=== PATIENT | female | born 1965 | race Caucasian/White ===

== ENCOUNTER 2016-11-18 16:32 | Emergency (ER) | payer BC ==
--- NOTE | 2016-11-18 16:52 | ER Document Report ---
ED Medical Screen (RME) - General Mode of Arrival: Ambulatory Information source: Patient TRAVEL OUTSIDE OF THE [place] IN LAST 30 DAYS: No <BOB HART - Last Filed: 11/18/16 16:46> <SEBAS GALLAGHER - Last Filed: 11/18/16 19:19> - General Stated Complaint: SYNCOPE Notes: Patient complains of epigastric abdominal pain that radiates around to right side through to her back. Patient states she's had this pain off and on for several months that worsened today. Patient reports nausea but states she has not been able to vomit. Patient states she has felt palpitations and chest pain. Patient reports chest pain as been off and on, but constant for the past week. hx: Hypothyroid, appendectomy, recent fundoplication, hypertension, dyslipidemia I have greeted and performed a rapid initial assessment of this patient. A comprehensive ED assessment and evaluation of the patient, analysis of test results and completion of the medical decision making process will be conducted by additional ED providers. (BOB HART) - Related Data Allergies/Adverse Reactions: Sulfa (Sulfonamide Antibiotics) Allergy (Severe, Verified 11/18/16 16:49) THROAT SWELLING erythromycin base [Erythromycin Base] Allergy (Intermediate, Verified 11/18/16 16:49) RASH, VOMITING Past Medical History - Past Medical History Cardiac Medical History: Reports: Hx Hypercholesterolemia, Hx Hypertension Denies: Hx Coronary Artery Disease, Hx Heart Attack Pulmonary Medical History: Reports: Hx Sleep Apnea Denies: Hx Asthma, Hx Bronchitis, Hx COPD, Hx Pneumonia Neurological Medical History: Denies: Hx Cerebrovascular Accident, Hx Seizures Endocrine Medical History: Reports: Hx Hypothyroidism Renal/ Medical History: Denies: Hx Kidney Stones GI Medical History: Reports: Hx Gastroesophageal Reflux Disease - Severe, Hx Hiatal Hernia - Sliding Musculoskeltal Medical History: Denies Hx Arthritis Past Surgical History: Reports: Hx Adenoidectomy, Hx Cholecystectomy, Hx Gynecologic Surgery - ectopic. Denies: Hx Hysterectomy - Immunizations Hx Diphtheria, Pertussis, Tetanus Vaccination: Yes - SEP 2012 <BOB HART - Last Filed: 11/18/16 16:46> Physical Exam - Abdominal Tenderness: Tender - Epigastric <BOB HART - Last Filed: 11/18/16 16:46> Course <BOB HART - Last Filed: 11/18/16 16:46> - Laboratory Result Diagrams: 11/18/16 17:00 11/18/16 17:00 - Diagnostic Test Radiology reviewed: Image reviewed, Reports reviewed - Peribronchial cuffing - EKG Interpretation by Me EKG shows normal: Sinus rhythm, [place], Intervals, QRS Complexes - Some inferior Q waves, ST-T Waves <SEBAS GALLAGHER - Last Filed: 11/18/16 19:19> - Re-evaluation Re-evalutation: 11/18/16 16:51 Offered patient aspirin, patient declines states that her blood was too thin and she cannot tolerate aspirin, patient advised of the reasoning behind the order. Patient declines (BOB HART) - Vital Signs Vital signs: Temp Pulse Resp BP Pulse Ox 98.1 F 99 14 151/102 H 97 11/18/16 16:39 11/18/16 16:39 11/18/16 16:39 11/18/16 16:39 11/18/16 16:39 - Laboratory Laboratory results interpreted by me: 11/18/16 11/18/16 11/18/16 17:00 17:00 17:00 Chloride 96 L Glucose 114 H Magnesium 1.5 L AST 82 H ALT 104 H TSH 76.00 H Free T4 0.70 L Free T3 pg/mL 2.01 L
[2016-11-18 17:26] LABS: ABSOLUTE EOSINOPHILS # (AUTO) 0.2 10^3/uL (0.0-0.6); ABSOLUTE LYMPHOCYTES (AUTO) 1.3 10^3/uL (0.5-4.7); ABSOLUTE MONOCYTES (AUTO) 0.4 10^3/uL (0.1-1.4); ABSOLUTE NEUT (AUTO) 4.5 10^3/uL (1.7-8.2); BASOPHILS % (AUTO) 0.6 % (0-2); EOSINOPHILS % (AUTO) 2.9 % (0-6); HEMATOCRIT 42.9 % (36.0-47.0); HEMOGLOBIN 14.3 g/dL (12.0-15.5); LYMPHOCYTES % (AUTO) 19.5 % (13-45); MEAN CORPUSCULAR HEMOGLOBIN 30.9 pg (27.0-33.4); MEAN CORPUSCULAR HGB CONC 33.3 g/dL (32.0-36.0); MEAN CORPUSCULAR VOLUME 93 fl (80-97); MONOCYTES % (AUTO) 6.3 % (3-13); RED BLOOD COUNT 4.62 10^6/uL (3.72-5.28); RED CELL DISTRIBUTION WIDTH 13.5 % (11.5-14.0); SEGMENTED NEUTROPHILS % (AUTO) 70.7 % (42-78); WHITE BLOOD COUNT 6.4 10^3/uL (4.0-10.5)
[2016-11-18 17:32] LABS: APPEARANCE,URINE SLIGHTLY-CLOUDY; BILIRUBIN,URINE NEGATIVE (NEGATIVE); GLUCOSE, URINE NEGATIVE (NEGATIVE); KETONES,URINE NEGATIVE (NEGATIVE); LEUKOCYTE ESTERASE,URINE NEGATIVE (NEGATIVE); NITRITE,URINE NEGATIVE (NEGATIVE); PROTEIN,URINE NEGATIVE (NEGATIVE); UROBILINOGEN,URINE NEGATIVE mg/dL (<2.0)
[2016-11-18 17:48] LABS: ALANINE AMINOTRANSFERASE 104 U/L (9-52); ALBUMIN 4.6 g/dL (3.5-5.0); ALKALINE PHOSPHATASE 110 U/L (38-126); ANION GAP 16 (5-19); ASPARTATE AMINO TRANSFERASE 82 U/L (14-36); BILIRUBIN,DIRECT 0.4 mg/dL (0.0-0.4); BILIRUBIN,TOTAL 0.6 mg/dL (0.2-1.3); BLOOD UREA NITROGEN 16 mg/dL (7-20); CALCIUM 9.3 mg/dL (8.4-10.2); CARBON DIOXIDE 28 mmol/L (22-30); CHLORIDE 96 mmol/L (98-107); CREATINE KINASE 81 U/L (30-135); CREATININE RESULT 0.95 mg/dL (0.52-1.25); GLUCOSE 114 mg/dL (75-110); LIPASE 61.8 U/L (23-300); MAGNESIUM 1.5 mg/dL (1.6-2.3); POTASSIUM 4.2 mmol/L (3.6-5.0); SODIUM 140.4 mmol/L (137-145); TOTAL PROTEIN 8.1 g/dL (6.3-8.2)
[2016-11-18 17:58] LABS: CREATINE KINASE MB 0.83 ng/mL (<4.55); TROPONIN I < 0.012 ng/mL
[2016-11-18 19:00] LABS: FREE T3 2.01 pg/mL (2.77-5.27)
--- NOTE | 2016-11-18 19:10 | EKG REPORT ---
SEVERITY:- ABNORMAL ECG - SINUS RHYTHM DIFFUSE NONSPECIFIC ST-T CHANGES : Confirmed by: Carlos Aquino MD 18-Nov-2016 19:09:26
--- NOTE | 2016-11-18 19:33 | ER Document Report ---
ED GI/ - General Time seen by provider: 19:20 Mode of Arrival: Ambulatory Information source: Patient, Relative - spouse TRAVEL OUTSIDE OF THE [place] IN LAST 30 DAYS: No - HPI Patient complains to provider of: Abdominal pain, Diarrhea. No: Vomiting Onset: Other - see HPI note Location: RUQ Associated symptoms: Diarrhea, Dizzy, Loss of appetite, Nausea, Radiates to back. denies: Vomiting <ROMEL HOWARD - Last Filed: 11/18/16 19:56> <SEBAS GALLAGHER - Last Filed: 11/18/16 23:14> - General Chief Complaint: Chest Pain > 30 Stated Complaint: SYNCOPE Notes: Patient is a 51 year old female presenting to the emergency department for abdominal pain, nausea, and diarrhea. Patient states she has had gradual abdominal pain that has worsened over the last month. Patient states her pain is in her right upper abdomen and radiates into her back. Patient states she also has had some syncopal episodes, heart racing, and muscle cramping as well. Patient states she is so nauseous that she cannot eat but she still has been gaining weight. Patient has hypothyroidism and is on synthroid. Patient's PCP is currently trying to get her thyroid medication at the right level. Patient states she has had diarrhea since she got her appendix removed. Patient states she had 4 abdominal surgeries last year; 3 for hernias and 1 was an appendectomy. Patient also has a history of a cholecystectomy. (ROMEL HOWARD) - Related Data Allergies/Adverse Reactions: Sulfa (Sulfonamide Antibiotics) Allergy (Severe, Verified 11/18/16 16:49) THROAT SWELLING erythromycin base [Erythromycin Base] Allergy (Intermediate, Verified 11/18/16 16:49) RASH, VOMITING Past Medical History - General Information source: Patient - Social History Smoking Status: Current Every Day Smoker Chew tobacco use (# tins/day): No Frequency of alcohol use: Occasional Drug Abuse: None Family History: Hypertension Patient has suicidal ideation: No Patient has homicidal ideation: No - Past Medical History Cardiac Medical History: Reports: Hx Hypercholesterolemia, Hx Hypertension Pulmonary Medical History: Reports: Hx Sleep Apnea Endocrine Medical History: Reports: Hx Hypothyroidism GI Medical History: Reports: Hx Gastroesophageal Reflux Disease - Severe, Hx Hiatal Hernia - Sliding Past Surgical History: Reports: Hx Abdominal Surgery - hernia repairs x3, Hx Adenoidectomy, Hx Appendectomy - 2016, Hx Cholecystectomy, Hx Gynecologic Surgery - ectopic - Immunizations Hx Diphtheria, Pertussis, Tetanus Vaccination: Yes - SEP 2012 <ROMEL HOWARD - Last Filed: 11/18/16 19:56> Review of Systems - Review of Systems Constitutional: No symptoms reported EENT: No symptoms reported Cardiovascular: See HPI, Heart racing, Dizziness Respiratory: No symptoms reported Gastrointestinal: See HPI, Abdominal pain, Diarrhea, Nausea, Poor appetite. denies: Vomiting Genitourinary: No symptoms reported Female Genitourinary: No symptoms reported Musculoskeletal: See HPI Skin: No symptoms reported Hematologic/Lymphatic: No symptoms reported Neurological/Psychological: See HPI, Headaches -: Yes All other systems reviewed and negative <ROMEL HOWARD - Last Filed: 11/18/16 19:56> Physical Exam - Vital signs Interpretation: Hypertensive <ROMEL HOWARD - Last Filed: 11/18/16 19:56> <SEBAS GALLAGHER - Last Filed: 11/18/16 23:14> - Vital signs Vitals: Temp Pulse Resp BP Pulse Ox 98.1 F 99 14 151/102 H 97 11/18/16 16:39 11/18/16 16:39 11/18/16 16:39 11/18/16 16:39 11/18/16 16:39 - Notes Notes: GENERAL: Well-appearing, well-nourished and in no acute distress HEAD: Atraumatic, normocephalic EYES: Pupils equal round and reactive to light, extraocular movements intact, sclera anicteric, no conjunctival injection or discharge ENT: Nares patent, oropharynx clear without exudates, moist mucous membranes, poor dentition. NECK: Normal range of motion, supple without lymphadenopathy LUNGS: Breath sounds clear to auscultation bilaterally and equal. No wheezes rales or rhonchi HEART: Regular rate and rhythm without murmurs ABDOMEN: Soft, mild generalized abdominal tenderness particularly in the RUQ, hyperactive bowel sounds. No guarding, no rebound. No masses appreciated. No [place] sign BACK: Mild right sided CVA tenderness. EXTREMITIES: Normal range of motion, no calf tenderness, no edema NEUROLOGICAL: Cranial nerves grossly intact. Normal speech, Normal sensory and motor exams. No gross cerebellar abnormalities PSYCH: Normal mood, normal affect SKIN: Warm, Dry, normal turgor, no lesions noted (ROMEL HOWARD) Course - Laboratory Result Diagrams: 11/18/16 17:00 11/18/16 17:00 <ROMEL HOWARD - Last Filed: 11/18/16 19:56> - Laboratory Result Diagrams: 11/18/16 17:00 11/18/16 17:00 - Diagnostic Test Radiology reviewed: Reports reviewed - Chest ?Peribronchial cuffing, CT with small ventral hernia <SEBAS GALLAGHER - Last Filed: 11/18/16 23:14> - Re-evaluation Re-evalutation: 11/18/16 21:51 Patient is feeling much better overall after the pain medication. I reviewed the laboratory findings with the patient. She has finished the contrast and waiting on her CT scan to be performed. 11/18/16 23:08 Patient is feeling much better overall. She will need gastroenterology follow- up for further definitive care. I've asked her to discuss with her primary care physician as well as her treatment of her hypothyroidism. Her abdomen isn' t benign on recheck and she is tolerating by mouth. She is comfortable with discharge plans. We will prescribe her Phenergan and Levsin for symptomatic treatment. (SEBAS GALLAGHER) - Vital Signs Vital signs: Temp Pulse Resp BP Pulse Ox 98.1 F 99 17 146/86 H 91 L 11/18/16 16:39 11/18/16 16:39 11/18/16 21:02 11/18/16 21:02 11/18/16 21:02 - Laboratory Laboratory results interpreted by me: 11/18/16 11/18/16 11/18/16 17:00 17:00 17:00 Chloride 96 L Glucose 114 H Magnesium 1.5 L AST 82 H ALT 104 H TSH 76.00 H Free T4 0.70 L Free T3 pg/mL 2.01 L Discharge <ROMEL HOWARD - Last Filed: 11/18/16 19:56> <SEBAS GALLAGHER - Last Filed: 11/18/16 23:14> - Discharge Clinical Impression: Hypothyroidism Abdominal pain Qualifiers: Abdominal location: upper abdomen, unspecified Qualified Code(s): R10.10 - Upper abdominal pain, unspecified Chest pain Qualifiers: Chest pain type: unspecified Qualified Code(s): R07.9 - Chest pain, unspecified Condition: Good Disposition: HOME, SELF-CARE Additional Instructions: Please follow-up with your primary care physician regarding your hypothyroidism. As well you will need gastroenterology follow-up at some point. Please discuss with your physician for referral. Please return if you' re worsening or for other concern. Prescriptions: Hyoscyamine Sulfate [Levsin 0.125 Tablet] 0.125 - 0.25 mg PO Q6HP PRN #12 tablet PRN Reason: For Abdominal Pain Promethazine HCl [Phenergan 25 mg Tablet] 1 - 2 tab PO Q6H PRN #15 tablet PRN Reason: Referrals: HARLEEN CERVANTES MD [Primary Care Provider] - Follow up in 3-5 days (Please discuss further with her primary care physician gastroenterology referral) Dianaibe Attestation: 11/18/16 23:11 I personally performed the services described in the documentation, reviewed and edited the documentation which was dictated to the scribe in my presence, and it accurately records my words and actions. (SEBAS GALLAGHER) Scribe Documentation - Scribe Written by Lali:: Romel Howard 11/18/16 20:00 acting as scribe for :: Reji <ROMEL HOWARD - Last Filed: 11/18/16 19:56>
[2016-11-18] MEDS ORDERED: NORMAL SALINE 1000 ML 500 ML IV ONE (19:54)
[2016-11-18] MEDS ORDERED: ONDANSETRON HCL INJ/PF 4 MG/2 ML SDV IV ONE (19:54)
[2016-11-18] MEDS ORDERED: HYDROMORPHONE HCL INJ/PF 2 MG/ML AMPULE IV ONE (19:55)
[2016-11-18 23:22] VITALS: BP 121/89
== END 2016-11-18 23:27 | disposition home or self-care (01) ==
LOC: ER 16:32
DX: R07.9 Chest pain, unspecified (principal); E03.9 Hypothyroidism, unspecified; K43.9 Ventral hernia without obstruction or gangrene; R10.11 Right upper quadrant pain; R19.7 Diarrhea, unspecified; R63.0 Anorexia; R11.0 Nausea; R10.817 Generalized abdominal tenderness; R55 Syncope and collapse; R25.2 Cramp and spasm; R51 Headache; I10 Essential (primary) hypertension; F17.200 Nicotine dependence, unspecified, uncomplicated; Z90.49 Acquired absence of other specified parts of digestive tract; Z88.2 Allergy status to sulfonamides; Z88.1 Allergy status to other antibiotic agents; Z87.19 Personal history of other diseases of the digestive system; Z87.59 Personal history of other complications of pregnancy, childbirth and the puerperium; Z79.899 Other long term (current) drug therapy
CPT/HCPCS: 93005; 99285; 96374; 96375; 36415; 84439; 82553; 82550; 83690; 83735; 84443; 84703; 85025; 80053; 81001; 84484; 84481; 71020; 74177; 93010; J1170; J2405; J7030

== ENCOUNTER 2016-11-29 10:09 | Day surgery (SDC) | payer BC ==
[~2016-11-29 10:09] MED LIST: PROPOFOL INJ 200 MG/20 ML VIAL IV ONE
[2016-11-29 11:20] VITALS: BP 136/99
--- NOTE | 2016-11-29 13:04 | Operative Report ---
Operative Report DATE OF SURGERY: 11/29/16 Operative Report: The risks, benefits and alternatives of the procedure including risks of bleeding, perforation requiring surgery are explained to the patient detail and informed consent is obtained. Patient is taken back to the endoscopy suite and placed in a left, lateral decubital position. Timeout is called. Propofol medications administered. A rectal examination was done which did not reveal any masses, tears or fissures. An Olympus video scope was inserted into the patient's rectum. The scope was then gradually advanced all the way to the cecum. The cecum was identified by the usual anatomical landmarks including the ileocecal valve as well as the appendiceal office. Photodocumentation is obtained. Prep is good. Scope was then sequentially pulled back via the rest segments of the colon including the ascending colon, hepatic flexure, transverse colon, splenic flexure, descending colon and finally into the rectosigmoid portions of the colon. Retroflexion maneuvers performed. The risks benefits and alternatives of the procedure explained to the patient in detail and informed consent is obtained that GIF Olympus video scope was inserted into the patient's mouth and hypopharynx the esophagus is identified intubated and insufflated the scope was then advanced through the esophagus stomach and duodenum retroflexion maneuver is done the esophagus stomach and first and second portions of the duodenum examined PREOPERATIVE DIAGNOSIS: Change of bowel habits. Gastroesophageal reflux disease , dysphagia POSTOPERATIVE DIAGNOSIS: Diverticulosis mild, no evidence of diverticulitis. Internal hemorrhoids. Right-sided mucosal inflammation status post biopsy rule out lymphocytic, collagenous, microscopic colitis. Gastritis mucosal specimens obtained rule out Helicobacter pylori. Duodenitis. Esophagitis OPERATION: Colonoscopy with biopsy. EGD with biopsy SURGEON: PUSHPA STOKES ANESTHESIA: LMAC TISSUE REMOVED OR ALTERED: As described above. COMPLICATIONS: None. ESTIMATED BLOOD LOSS: none. INTRAOPERATIVE FINDINGS: As described above. PROCEDURE: Patient tolerated the procedure well. Patient is discharged in good condition. No immediate postprocedure complications are noted. Discharge date 11/29/16 Discharge diet: Regular. Discharge activity: Regular. 2-3 week follow-up to discuss findings. We'll await on biopsies. Patient is instructed to call the office or proceed to the emergency room should there be any further problems or questions.
== END 2016-11-29 11:26 | disposition home or self-care (01) ==
LOC: END 10:09
PROVIDERS: ATTEND Internal Medicine Gastroenterology
PROC: 0DBF8ZX Excision of Right Large Intestine, Via Natural or Artificial Opening Endoscopic, Diagnostic (ICD-10-PCS; 2016-11-29)
PROC: 0DB68ZX Excision of Stomach, Via Natural or Artificial Opening Endoscopic, Diagnostic (ICD-10-PCS; principal; 2016-11-29 12:30)
PROC: 0DB58ZX Excision of Esophagus, Via Natural or Artificial Opening Endoscopic, Diagnostic (ICD-10-PCS; 2016-11-29 12:30)
DX: K57.30 Diverticulosis of large intestine without perforation or abscess without bleeding (principal); K64.8 Other hemorrhoids; K52.9 Noninfective gastroenteritis and colitis, unspecified; K21.0 Gastro-esophageal reflux disease with esophagitis; K29.70 Gastritis, unspecified, without bleeding; K29.80 Duodenitis without bleeding; D50.9 Iron deficiency anemia, unspecified; E78.5 Hyperlipidemia, unspecified; I10 Essential (primary) hypertension; Z79.899 Other long term (current) drug therapy
CPT/HCPCS: 43239; 45380; 88305 ×2; J2704; 740

== ENCOUNTER 2016-12-20 09:03 | Day surgery (SDC) | payer BC ==
[2016-12-20 10:53] VITALS: BP 140/88
--- NOTE | 2016-12-20 11:41 | Operative Report ---
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 Gastritis status post biopsy rule out Helicobacter pylori OPERATION: EGD with ablation. EGD with biopsy SURGEON: PUSH[place] STOKES ANESTHESIA: LMAC TISSUE REMOVED OR ALTERED: Gastric specimen obtained rule out Helicobacter pylori COMPLICATIONS: None. ESTIMATED BLOOD LOSS: none. INTRAOPERATIVE FINDINGS: As described above. PROCEDURE: Patient tolerated the procedure well. No immediate postprocedure complications are noted. Patient is discharged in good condition. Discharge date: 12/20/2016. Discharge diet: Regular. Discharge activity: Regular. 2-3 week follow-up to discuss findings. Patient is instructed to call the office or proceed to the emergency room should there be any further problems or questions. We'll await on biopsies. Surveillance upper endoscopy in 1 year for reevaluation
== END 2016-12-20 10:45 | disposition home or self-care (01) ==
LOC: END 09:03
PROVIDERS: ATTEND Internal Medicine Gastroenterology
PROC: 0DB68ZX Excision of Stomach, Via Natural or Artificial Opening Endoscopic, Diagnostic (ICD-10-PCS; principal; 2016-12-20 12:30)
PROC: 0D558ZZ Destruction of Esophagus, Via Natural or Artificial Opening Endoscopic (ICD-10-PCS; 2016-12-20 12:30)
DX: K22.719 Barrett's esophagus with dysplasia, unspecified (principal); K29.50 Unspecified chronic gastritis without bleeding; K21.9 Gastro-esophageal reflux disease without esophagitis; D50.9 Iron deficiency anemia, unspecified; I10 Essential (primary) hypertension; E03.9 Hypothyroidism, unspecified; E78.5 Hyperlipidemia, unspecified; Z88.2 Allergy status to sulfonamides; Z88.1 Allergy status to other antibiotic agents; Z79.899 Other long term (current) drug therapy
CPT/HCPCS: 43270; 43239; 88305 ×2; J2704; 740

== ENCOUNTER 2017-05-23 11:32 | Emergency (ER) | payer BC ==
--- NOTE | 2017-05-23 11:56 | ER Document Report ---
ED General - General Chief Complaint: Vomiting Stated Complaint: FEVER Time Seen by Provider: 05/23/17 11:46 Mode of Arrival: Ambulatory Information source: Patient Notes: 51-year-old female presents with complaint of bumps to the back of her head as of last night. Patient admits to feeling nauseous pain going down her spine. Patient admits to fever but was not taken a temperature. Patient denies any previous similar episodes notes family history TRAVEL OUTSIDE OF THE [place] IN LAST 30 DAYS: No - HPI Onset: This morning Onset/Duration: Sudden Quality of pain: Achy Severity: Mild Pain Level: 1 Associated symptoms: Fever, Other Exacerbated by: Denies Relieved by: Denies Similar symptoms previously: No Recently seen / treated by doctor: No - Related Data Allergies/Adverse Reactions: Sulfa (Sulfonamide Antibiotics) Allergy (Severe, Verified 05/23/17 11:34) THROAT SWELLING erythromycin base [Erythromycin Base] Allergy (Intermediate, Verified 05/23/17 11:34) RASH, VOMITING Past Medical History - Social History Smoking Status: Never Smoker Cigarette use (# per day): No Chew tobacco use (# tins/day): No Smoking Education Provided: No Family History: Hypertension - Past Medical History Cardiac Medical History: Reports: Hx Coronary Artery Disease - HIGH CHOLESTEROL , Hx Hypercholesterolemia, Hx Hypertension Denies: Hx Heart Attack Pulmonary Medical History: Reports: Hx Sleep Apnea Denies: Hx Asthma, Hx Bronchitis, Hx COPD, Hx Pneumonia Neurological Medical History: Denies: Hx Cerebrovascular Accident, Hx Seizures Endocrine Medical History: Reports: Hx Hypothyroidism Renal/ Medical History: Denies: Hx Kidney Stones, Hx Peritoneal Dialysis GI Medical History: Reports: Hx Gastroesophageal Reflux Disease - Severe, Hx Hiatal Hernia - Sliding Musculoskeltal Medical History: Denies Hx Arthritis Past Surgical History: Reports: Hx Abdominal Surgery - hernia repairs x3, Hx Adenoidectomy, Hx Appendectomy - 2016, Hx Cholecystectomy, Hx Gynecologic Surgery - ectopic. Denies: Hx Hysterectomy - Immunizations Hx Diphtheria, Pertussis, Tetanus Vaccination: Yes - SEP 2012 Review of Systems - Review of Systems Notes: REVIEW OF SYSTEMS: CONSTITUTIONAL : Admits fevers EENT: Denies eye, ear, throat, or mouth pain or symptoms. Denies nasal or sinus congestion or discharge. Denies throat, tongue, or mouth swelling or difficulty swallowing. CARDIOVASCULAR: Denies chest pain. Denies palpitations or racing or irregular heart beat. Denies ankle edema. RESPIRATORY: Denies cough, cold, or chest congestion. Denies shortness of breath, difficulty breathing, or wheezing. GASTROINTESTINAL: Admits nausea GENITOURINARY: Denies difficulty urinating, painful urination, burning, frequency, blood in urine, or discharge. FEMALE GENITOURINARY: Denies vaginal bleeding, heavy or abnormal periods, irregular periods. Denies vaginal discharge or odor. MUSCULOSKELETAL: Admits neck pain rating from her head HEMATOLOGIC : Denies easy bruising or bleeding. LYMPHATIC: Denies swollen, enlarged glands. NEUROLOGICAL: Admits to scalp pain PSYCHIATRIC: Denies anxiety or stress. Denies depression, suicidal ideation, or homicidal ideation. ALL OTHER SYSTEMS REVIEWED AND NEGATIVE. PHYSICAL EXAMINATION: GENERAL: Well-appearing, well-nourished and in no acute distress. HEAD: Scalp abscesses EYES: Pupils equal round and reactive to light, extraocular movements intact, conjunctiva are normal. ENT: Nares patent, oropharynx clear without exudates. Moist mucous membranes. NECK: Normal range of motion, supple without lymphadenopathy LUNGS: Breath sounds clear to auscultation bilaterally and equal. No wheezes rales or rhonchi. HEART: Regular rate and rhythm without murmurs ABDOMEN: Soft, nontender, nondistended abdomen. No guarding, no rebound. No masses appreciated. Female : deferred Musculoskeletal: Normal range of motion, no pitting or edema. No cyanosis. NEUROLOGICAL: Cranial nerves grossly intact. Normal speech, normal gait. Normal sensory, motor exams PSYCH: Normal mood, normal affect. SKIN: Multiple abscesses noted 3 in the occipital region one appears to be draining 1 is nonfluctuant the other appears to just be starting. There is to small pimples behind the right ear as well Dictation was performed using [employer] voice recognition software Physical Exam - Vital signs Vitals: Temp Pulse Resp BP Pulse Ox 97.6 F 105 H 16 160/111 H 96 05/23/17 11:34 05/23/17 11:34 05/23/17 11:34 05/23/17 11:34 05/23/17 11:34 Course - Re-evaluation Re-evalutation: 05/23/17 12:04 Patient appears to have exposure to MRSA, she overall looks well appears to be tender nauseous and having pain from these abscesses. Unfortunately not appear to be drainable at this time patient will be started on clindamycin and be given very strict return precautions After performing a Medical Screening Examination, I estimate there is LOW risk for OPEN FRACTURE, COMPARTMENT SYNDROME, TENDON RUPTURE, ACUTE NEUROVASCULAR INJURY, or RETAINED FOREIGN BODY, thus I consider the discharge disposition reasonable. Also, there is no evidence or peritonitis, sepsis, or toxicity. I have reevaluated this patient multiple times and no significant life threatening changes are noted. The patient and I have discussed the diagnosis and risks, and we agree with discharging home with close follow-up with the understanding that symptoms and presentations can change. We also discussed returning to the Emergency Department immediately if new or worsening symptoms occur. We have discussed the symptoms which are most concerning (e.g., changing or worsening pain, fever, numbness, weakness, cool or painful digits) that necessitate immediate return. - Vital Signs Vital signs: Temp Pulse Resp BP Pulse Ox 98.2 F 99 18 158/110 H 99 05/23/17 11:57 05/23/17 11:57 05/23/17 11:57 05/23/17 11:57 05/23/17 11:57 Discharge - Discharge Clinical Impression: Abscess, Nausea Fever Qualifiers: Fever type: unspecified Qualified Code(s): R50.9 - Fever, unspecified HTN (hypertension) Qualifiers: Hypertension type: essential hypertension Qualified Code(s): I10 - Essential ( primary) hypertension Condition: Stable Disposition: HOME, SELF-CARE Instructions: Abscess ([facility]) Additional Instructions: Follow up with your physician tomorrow for further care or return to the ED IMMEDIATELY if symptoms worsen or new concerns occur. If you cannot afford to follow up with your primary care physician a list of low cost clinics have been provided at the end of your discharge papers as well. Prescriptions: Clindamycin HCl 300 mg PO Q6 #40 capsule Metoclopramide HCl [Reglan 10 mg Tablet] 1 - 2 tab PO ASDIR PRN #25 tablet PRN Reason:
[2017-05-23 11:58] VITALS: BP 158/110
== END 2017-05-23 11:56 | disposition home or self-care (01) ==
LOC: ER 11:32
DX: L02.811 Cutaneous abscess of head [any part, except face] (principal); R11.2 Nausea with vomiting, unspecified; R50.9 Fever, unspecified; E78.00 Pure hypercholesterolemia, unspecified; I10 Essential (primary) hypertension; E03.9 Hypothyroidism, unspecified; Z88.3 Allergy status to other anti-infective agents; Z88.2 Allergy status to sulfonamides; Z90.49 Acquired absence of other specified parts of digestive tract
CPT/HCPCS: 99283

== ENCOUNTER → 2017-09-14 | Outpatient (CLI) | payer OTHER ==
[2017-09-14 16:15] LABS: ABSOLUTE EOSINOPHILS # (AUTO) 0.1 10^3/uL (0.0-0.6); ABSOLUTE LYMPHOCYTES (AUTO) 1.4 10^3/uL (0.5-4.7); ABSOLUTE MONOCYTES (AUTO) 0.5 10^3/uL (0.1-1.4); ABSOLUTE NEUT (AUTO) 4.8 10^3/uL (1.7-8.2); BASOPHILS % (AUTO) 0.4 % (0-2); HEMATOCRIT 45.5 % (36.0-47.0); HEMOGLOBIN 15.6 g/dL (12.0-15.5); LYMPHOCYTES % (AUTO) 20.2 % (13-45); MEAN CORPUSCULAR HEMOGLOBIN 31.4 pg (27.0-33.4); MEAN CORPUSCULAR HGB CONC 34.3 g/dL (32.0-36.0); MEAN CORPUSCULAR VOLUME 91 fl (80-97); MONOCYTES % (AUTO) 6.6 % (3-13); PLATELET COUNT 251 10^3/uL (150-450); RED BLOOD COUNT 4.98 10^6/uL (3.72-5.28); RED CELL DISTRIBUTION WIDTH 13.2 % (11.5-14.0); SEGMENTED NEUTROPHILS % (AUTO) 70.8 % (42-78); TOTAL CELLS COUNTED % (AUTO) 100 %; WHITE BLOOD COUNT 6.9 10^3/uL (4.0-10.5)
[2017-09-14 16:31] LABS: ALANINE AMINOTRANSFERASE 106 U/L (9-52); ALBUMIN 4.9 g/dL (3.5-5.0); ALKALINE PHOSPHATASE 104 U/L (38-126); ANION GAP 12 (5-19); ASPARTATE AMINO TRANSFERASE 101 U/L (14-36); BILIRUBIN,DIRECT 0.2 mg/dL (0.0-0.4); BILIRUBIN,TOTAL 0.2 mg/dL (0.2-1.3); BLOOD UREA NITROGEN 12 mg/dL (7-20); CARBON DIOXIDE 28 mmol/L (22-30); CHLORIDE 104 mmol/L (98-107); CHOLESTEROL 256.22 mg/dL (0-200); GLUCOSE 95 mg/dL (75-110); POTASSIUM 5.1 mmol/L (3.6-5.0); SODIUM 144.3 mmol/L (137-145); TOTAL PROTEIN 8.3 g/dL (6.3-8.2); TRIGLYCERIDES 270 mg/dL (<150)
[2017-09-14 16:42] LABS: DIRECT LDL 165 mg/dL (<100)
== END ==
LOC: CCC 15:38
DX: I10 Essential (primary) hypertension (principal)
CPT/HCPCS: 36415; 80053; 80061; 83036; 84443; 85025

== ENCOUNTER 2017-11-01 10:41 | Inpatient (IN) | payer SELFPAY ==
[2017-11-01] MEDS ORDERED: ASPIRIN 81 MG TABLET, CHEWABLE PO ONE (11:25)
--- NOTE | 2017-11-01 11:26 | ER Document Report ---
ED Medical Screen (RME) - General Chief Complaint: Chest Pain > 30 Stated Complaint: ABDOMINAL PAIN Time Seen by Provider: 11/01/17 11:20 Notes: RME DISCLOSURE I have seen this patient as part of a Rapid Medical Evaluation and, if applicable, placed any initially appropriate orders. The patient will be seen and fully evaluated, including a full history and physical exam, by a provider ( in Main ED or Fast Track) when a room becomes available. 52-year-old female here with complaints of left-sided chest pain radiating up to the left shoulder with shortness of breath. Pain started last night. Pain is worse with exertion. She has also had some right upper quadrant abdominal pain ongoing for the past few months. She also complains of some "worms in my poop". EXAM To auscultation bilaterally Regular rate and rhythm TRAVEL OUTSIDE OF THE [place] IN LAST 30 DAYS: No - Related Data Allergies/Adverse Reactions: Sulfa (Sulfonamide Antibiotics) Allergy (Severe, Verified 11/01/17 10:43) THROAT SWELLING erythromycin base [Erythromycin Base] Allergy (Intermediate, Verified 11/01/17 10:43) RASH, VOMITING Past Medical History - Past Medical History Cardiac Medical History: Reports: Hx Coronary Artery Disease - HIGH CHOLESTEROL , Hx Hypercholesterolemia, Hx Hypertension Denies: Hx Heart Attack Pulmonary Medical History: Reports: Hx Sleep Apnea Denies: Hx Asthma, Hx Bronchitis, Hx COPD, Hx Pneumonia Neurological Medical History: Denies: Hx Cerebrovascular Accident, Hx Seizures Endocrine Medical History: Reports: Hx Hypothyroidism Renal/ Medical History: Denies: Hx Kidney Stones, Hx Peritoneal Dialysis GI Medical History: Reports: Hx Gastroesophageal Reflux Disease - Severe, Hx Hiatal Hernia - Sliding Musculoskeltal Medical History: Denies Hx Arthritis Past Surgical History: Reports: Hx Abdominal Surgery - hernia repairs x3, Hx Adenoidectomy, Hx Appendectomy - 2016, Hx Cholecystectomy, Hx Gynecologic Surgery - ectopic. Denies: Hx Hysterectomy - Immunizations Hx Diphtheria, Pertussis, Tetanus Vaccination: Yes - SEP 2012 Physical Exam - Vital signs Vitals: Temp Pulse Resp BP Pulse Ox 97.4 F 86 18 175/99 H 97 11/01/17 10:54 11/01/17 10:54 11/01/17 10:54 11/01/17 10:54 11/01/17 10:54 Course - Vital Signs Vital signs: Temp Pulse Resp BP Pulse Ox 97.4 F 86 18 175/99 H 97 11/01/17 10:54 11/01/17 10:54 11/01/17 10:54 11/01/17 10:54 11/01/17 10:54
[2017-11-01 11:46] LABS: ABSOLUTE EOSINOPHILS # (AUTO) 0.1 10^3/uL (0.0-0.6); ABSOLUTE LYMPHOCYTES (AUTO) 1.1 10^3/uL (0.5-4.7); ABSOLUTE MONOCYTES (AUTO) 0.3 10^3/uL (0.1-1.4); ABSOLUTE NEUT (AUTO) 4.4 10^3/uL (1.7-8.2); BASOPHILS % (AUTO) 0.5 % (0-2); EOSINOPHILS % (AUTO) 2.2 % (0-6); HEMATOCRIT 42.8 % (36.0-47.0); HEMOGLOBIN 14.4 g/dL (12.0-15.5); MEAN CORPUSCULAR HEMOGLOBIN 31.2 pg (27.0-33.4); MEAN CORPUSCULAR HGB CONC 33.7 g/dL (32.0-36.0); MEAN CORPUSCULAR VOLUME 93 fl (80-97); MONOCYTES % (AUTO) 4.7 % (3-13); PLATELET COUNT 203 10^3/uL (150-450); RED BLOOD COUNT 4.62 10^6/uL (3.72-5.28); SEGMENTED NEUTROPHILS % (AUTO) 73.6 % (42-78); TOTAL CELLS COUNTED % (AUTO) 100 %; WHITE BLOOD COUNT 5.9 10^3/uL (4.0-10.5)
[2017-11-01 12:08] LABS: ALANINE AMINOTRANSFERASE 96 U/L (9-52); ALBUMIN 4.4 g/dL (3.5-5.0); ALKALINE PHOSPHATASE 90 U/L (38-126); ANION GAP 14 (5-19); ASPARTATE AMINO TRANSFERASE 61 U/L (14-36); BILIRUBIN,DIRECT 0.2 mg/dL (0.0-0.4); BILIRUBIN,TOTAL 0.3 mg/dL (0.2-1.3); BLOOD UREA NITROGEN 13 mg/dL (7-20); CALCIUM 9.5 mg/dL (8.4-10.2); CARBON DIOXIDE 25 mmol/L (22-30); CHLORIDE 103 mmol/L (98-107); GLUCOSE 168 mg/dL (75-110); LIPASE 45.1 U/L (23-300); POTASSIUM 4.7 mmol/L (3.6-5.0); SODIUM 141.6 mmol/L (137-145); TOTAL PROTEIN 7.3 g/dL (6.3-8.2)
--- NOTE | 2017-11-01 12:10 | RADIOLOGY REPORT (SQ) ---
EXAM DESCRIPTION: CHEST PA/LAT COMPLETED DATE/TIME: 11/01/2017 11:50 am REASON FOR STUDY: CP SOB COMPARISON: None. EXAM PARAMETERS: NUMBER OF VIEWS: two views TECHNIQUE: Digital Frontal and Lateral radiographic views of the chest acquired. RADIATION DOSE: NA LIMITATIONS: none FINDINGS: LUNGS AND PLEURA: Minimal left basilar scarring. No acute opacities, masses or pneumothor ax. No pleural effusion. MEDIASTINUM AND HILAR STRUCTURES: No masses or contour abnormalities. HEART AND VASCULAR STRUCTURES: Heart normal size. No evidence for failure. BONES: No acute findings. HARDWARE: None in the chest. OTHER: No other significant finding. IMPRESSION: NO SIGNIFICANT RADIOGRAPHIC FINDING IN THE CHEST. TECHNICAL DOCUMENTATION: JOB ID: [id number] [employer]- All Rights Reserved Reading location - IP/workstation name: [email or web address]
--- NOTE | 2017-11-01 12:25 | ER Document Report ---
ED Cardiac - General Chief Complaint: Chest Pain > 30 Stated Complaint: ABDOMINAL PAIN Time Seen by Provider: 11/01/17 11:20 Mode of Arrival: Ambulatory Information source: Patient Notes: Patient is a 52-year-old female with hypertension, diabetes who presents to the ER today for left-sided chest pain radiating to the left shoulder giving her shortness of breath and nausea. Patient states that this started last night and has been constant since that time. Patient's father had a heart attack at 50 years old and has heart disease. Patient has never had a heart attack or stroke, never had a stress test. Patient also complains of bloating to the abdomen for about a month with nausea , diarrhea, sensation of being full all the time.Patient denies any travel, states "I do go to the zoo a lot and feed the animals." She's been having white worms come from her stool. TRAVEL OUTSIDE OF THE [place] IN LAST 30 DAYS: No - Related Data Allergies/Adverse Reactions: Sulfa (Sulfonamide Antibiotics) Allergy (Severe, Verified 11/01/17 10:43) THROAT SWELLING erythromycin base [Erythromycin Base] Allergy (Intermediate, Verified 11/01/17 10:43) RASH, VOMITING Past Medical History - General Information source: Patient - Social History Smoking Status: Never Smoker Chew tobacco use (# tins/day): No Frequency of alcohol use: Rare Drug Abuse: None Family History: Hypertension Patient has suicidal ideation: No Patient has homicidal ideation: No - Past Medical History Cardiac Medical History: Reports: Hx Coronary Artery Disease - HIGH CHOLESTEROL , Hx Hypercholesterolemia, Hx Hypertension Denies: Hx Heart Attack Pulmonary Medical History: Reports: Hx Sleep Apnea Denies: Hx Asthma, Hx Bronchitis, Hx COPD, Hx Pneumonia Neurological Medical History: Denies: Hx Cerebrovascular Accident, Hx Seizures Endocrine Medical History: Reports: Hx Hypothyroidism Renal/ Medical History: Denies: Hx Kidney Stones, Hx Peritoneal Dialysis GI Medical History: Reports: Hx Gastroesophageal Reflux Disease - Severe, Hx Hiatal Hernia - Sliding Musculoskeltal Medical History: Denies Hx Arthritis Past Surgical History: Reports: Hx Abdominal Surgery - hernia repairs x3, Hx Adenoidectomy, Hx Appendectomy - 2016, Hx Cholecystectomy, Hx Gynecologic Surgery - ectopic. Denies: Hx Hysterectomy - Immunizations Hx Diphtheria, Pertussis, Tetanus Vaccination: Yes - SEP 2012 Review of Systems - Review of Systems Constitutional: No symptoms reported EENT: No symptoms reported Cardiovascular: See HPI Respiratory: No symptoms reported Gastrointestinal: See HPI Genitourinary: No symptoms reported Female Genitourinary: No symptoms reported Musculoskeletal: No symptoms reported Skin: No symptoms reported Hematologic/Lymphatic: No symptoms reported Neurological/Psychological: No symptoms reported Physical Exam - Vital signs Vitals: Temp Pulse Resp BP Pulse Ox 97.4 F 86 18 175/99 H 97 11/01/17 10:54 11/01/17 10:54 11/01/17 10:54 11/01/17 10:54 11/01/17 10:54 - Notes Notes: PHYSICAL EXAMINATION: GENERAL: Uncomfortable appearing, but in no acute distress. HEAD: Atraumatic, normocephalic. EYES: Pupils equal round and reactive to light, extraocular movements intact, sclera anicteric, conjunctiva are normal. NECK: Normal range of motion, supple without lymphadenopathy LUNGS: chest nontender to palpation,CTAB and equal. No wheezes rales or rhonchi. HEART: Regular rate and rhythm without murmurs ABDOMEN: Soft, distended, no tenderness. No guarding, no rebound BACK: no vertebral tenderness, normal ROM GI/: no CVA tenderness EXTREMITIES: Normal range of motion, no pitting edema. No cyanosis. NEUROLOGICAL: Cranial nerves grossly intact. Normal sensory/motor exams. PSYCH: Normal mood, normal affect. SKIN: Warm, Dry, normal turgor, no rashes or lesions noted Course - Re-evaluation Re-evalutation: 11/01/17 15:54 Patient showed me to Ziploc bags full of different sized worms that she is collected from her stool. Stool ova and parasite culture pending at this time. Cardiac enzymes negative, EKG without acute abnormality or evidence of ischemia, however patient has significant risk factors for cardiac disease and is admitted at this time for chest pain. Nitroglycerin paste did relieve her chest pain. - Vital Signs Vital signs: Temp Pulse Resp BP Pulse Ox 97.4 F 86 22 H 162/98 H 97 11/01/17 10:54 11/01/17 10:54 11/01/17 14:30 11/01/17 14:30 11/01/17 14:30 - Laboratory Result Diagrams: 11/01/17 11:35 11/01/17 11:35 Laboratory results interpreted by me: 11/01/17 11:35 Glucose 168 H AST 61 H ALT 96 H Discharge - Discharge Clinical Impression: Tapeworm Chest pain Qualifiers: Chest pain type: unspecified Qualified Code(s): R07.9 - Chest pain, unspecified Condition: Stable Disposition: ADMITTED OBSERVATION Admitting Provider: Hospitalist - [facility] Unit Admitted: Telemetry
--- NOTE | 2017-11-01 13:33 | RADIOLOGY REPORT (SQ) ---
EXAM DESCRIPTION: U/S ABDOMEN LIMITED W/O DOP COMPLETED DATE/TIME: 11/01/2017 1:13 pm REASON FOR STUDY: ruq pain COMPARISON: Abdominal CT scan dated October 2016 TECHNIQUE: Dynamic and static grayscale images acquired of the abdomen and recorded on PACS. Iano leidy selected color Doppler and spectral images recorded. LIMITATIONS: None. FINDINGS: PANCREAS: No masses. No peripancreatic edema or fluid collections. LIVER: Echotexture is coarse with increased echogenicity consistent with fatty infiltration. This wa s present on the previous CT scan. LIVER VASCULATURE: Normal directional flow of the main portal vein. GALLBLADDER: Status post cholecystectomy ULTRASOUND-DETECTED BURNS'S SIGN: Negative. INTRAHEPATIC DUCTS AND COMMON DUCT: CBD and intrahepatic ducts normal caliber. No filling defects. INFERIOR VENA CAVA: Normal flow. AORTA: No aneurysm. RIGHT KIDNEY: 11.5 cm in length. Normal echogenicity. No solid or suspicious masses. No hydron ephrosis. No calcifications. PERITONEAL AND RIGHT PLEURAL SPACE: No ascites or effusions. OTHER: No other significant finding. IMPRESSION: FATTY INFILTRATION OF THE LIVER. Status post cholecystectomy. No other significant int ra-abdominal abnormalities were identified. Other findings as noted above TECHNICAL DOCUMENTATION: JOB ID: [id number] [employer]- All Rights Reserved Reading location - IP/workstation name: [email or web address]
[2017-11-01] MEDS ORDERED: NITROGLYCERIN 2% OINTMENT 1 GM PACKET TP ONE (14:22)
[2017-11-01] MEDS ORDERED: IVERMECTIN 3 MG TABLET PO ONE (15:30)
[2017-11-01] MEDS ORDERED: HYDROCODONE/ACETAMINOPHEN 5-325 MG TABLET PO ONE (16:51)
[2017-11-01] MEDS ORDERED: ONDANSETRON HCL INJ/PF 4 MG/2 ML SDV IV PRN (17:16)
[2017-11-01] MEDS ORDERED: ACETAMINOPHEN 325 MG TABLET PO PRN (18:07)
[2017-11-01] MEDS ORDERED: RINGERS SOLUTION,LACTATED 1,000 ML IV PRN (20:29)
[2017-11-01] MEDS: ATORVASTATIN CALCIUM 20 MG TABLET PO SCH (20:36)
[2017-11-01] MEDS: METOPROLOL TARTRATE 25 MG TABLET PO SCH (20:36)
--- NOTE | 2017-11-01 21:23 | EKG REPORT ---
SEVERITY:- ABNORMAL ECG - SINUS RHYTHM : Confirmed by: Nicole Enamorado 01-Nov-2017 21:22:51
[2017-11-02] MEDS ORDERED: FENTANYL CITRATE INJ/PF 100 MCG/2 ML AMPUL IV PRN (02:46)
[2017-11-02] MEDS ORDERED: FENTANYL CITRATE INJ/PF 100 MCG/2 ML AMPUL ONE (02:55)
[2017-11-02] MEDS: LEVOTHYROXINE SODIUM 0.1 MG TABLET PO SCH (05:40)
[2017-11-02] MEDS: LANSOPRAZOLE 30 MG TAB.RAP.DR PO SCH (05:40)
[2017-11-02 06:19] LABS: CHOLESTEROL 265.99 mg/dL (0-200); TRIGLYCERIDES 200 mg/dL (<150)
--- NOTE | 2017-11-02 06:27 | RADIOLOGY REPORT (SQ) ---
EXAM DESCRIPTION: CT HEAD WITHOUT CLINICAL HISTORY: head and change in vision COMPARISON: None available TECHNIQUE: Axial CT of the head obtained from the skull apex to the skull base without contrast. FINDINGS: No acute intracranial hemorrhage identified. No mass, mass effect, shift of the midline, abnormal extra-axial fluid collection or CT evidence of acute ischemic change identified. The ventricular system is unremarkable. No acute abnormalities of the supratentorial white matter, basal ganglia, cerebellum, or brainstem. The visualized paranasal sinuses and the mastoids are clear. No skull fracture identified. Visualized orbits and globes are unremarkable. DLP:1162.97 mGy-cm IMPRESSION: 1. No acute intracranial abnormality identified. This exam was performed according to our departmental dose-optimization program, which includes automated exposure control, adjustment of the mA and/or kV according to patient size and/or use of iterative reconstruction technique.
[2017-11-02 06:29] LABS: DIRECT LDL 196 mg/dL (<100)
[2017-11-02 06:35] LABS: FREE T4 (FREE THYROXINE) 0.87 ng/dL (0.78-2.19)
--- NOTE | 2017-11-02 06:47 | RADIOLOGY REPORT (SQ) ---
EXAM DESCRIPTION: 1. CTA of the chest per PE protocol. 2. CT of the abdomen and pelvis with contrast. CLINICAL HISTORY: CHEST PAIN. Left upper quadrant pain. COMPARISON: 11/18/2016 TECHNIQUE: CTA of the chest obtained per PE protocol following the uncomplicated intravenous administration of 82 mL Isovue-370. 3-D/MIP reformatted images available. CT of the abdomen and pelvis is then obtained in the portal venous and delayed phases. DLP: 5004.39 mGycm FINDINGS: CTA CHEST: Mediastinal windows demonstrate an excellent contrast bolus. No pulmonary embolus identified. Great vessels have normal anatomic configuration. Atherosclerotic calcification of the thoracic aorta. No cardiomegaly, pericardial effusion, or coronary artery atherosclerosis. No mediastinal lymphadenopathy. No definite abnormalities of visualized esophagus. Lung windows demonstrate minimal bilateral dependent atelectasis. No pneumothorax, lobar consolidation, or pleural effusion. Abdomen: The liver has normal size and density. No intrahepatic mass or biliary dilatation. Prior cholecystectomy. The spleen, pancreas, and adrenal glands are unremarkable. The kidneys have normal size and contour without evidence of solid mass or hydronephrosis. Aortoiliac atherosclerosis. IVC is unremarkable. The portal vein is patent. The proximal visceral and renal arteries are patent. No free intraperitoneal air. The stomach and duodenum have normal course. Pelvis: Uterus is not enlarged. Urinary bladder is unremarkable. No free pelvic fluid or lymphadenopathy. No dilated loops of large or small bowel. Appendix is not identified. No evidence of appendicitis. The visualized lung bases are clear. No destructive bone lesions identified. Mild degenerative change of the thoracic and lumbar spine. IMPRESSION: 1. No pulmonary embolus identified. 2. No acute abnormality in the abdomen identified to explain patient's symptoms identified. 3. Hepatic steatosis. This exam was performed according to our departmental dose-optimization program, which includes automated exposure control, adjustment of the mA and/or kV according to patient size and/or use of iterative reconstruction technique.
[2017-11-02 06:49] LABS: THYROID STIMULATING HORMONE 28.8 uIU/mL (0.47-4.68)
[2017-11-02] MEDS ORDERED: LISINOPRIL 10 MG TABLET PO SCH (10:00)
[2017-11-02] MEDS ORDERED: [UNRECOGNIZED DRUG - OTHER] PO ONE (10:00)
[2017-11-02] MEDS ORDERED: ATORVASTATIN CALCIUM 20 MG TABLET PO SCH (10:00)
[2017-11-02] MEDS: METOPROLOL TARTRATE 25 MG TABLET PO SCH ×2 (10:12→22:15)
[2017-11-02] MEDS: ASPIRIN 81 MG TABLET, CHEWABLE PO SCH (10:12)
[2017-11-02] MEDS: LOSARTAN POTASSIUM 50 MG TABLET PO SCH (10:12)
--- NOTE | 2017-11-02 12:32 | PDOC CONSULTATION ---
Consultation Consult Date: 11/02/17 Attending physician:: PUSHPA STOKES Consult reason:: abdominal distension, nausea History of Present Illness Admission Date/PCP: 11/01/17 16:07 LULU CARLOS MD History of Present Illness: Patient has been been seen in the past, history of GERD, had EGD and colonoscopy multiple number of times all negative patient has never been formally diagnosed with any sort of parasitic infections in the past she states has left sided chest pain she is being admitted patient does have GERD and history of Mercedes's esophagus, previously ablated patient states started last night CT scan and ultrasound are normal previous endoscopic reports are reviewed patient has normal labs she has not been back to the office in over 2 years she previously had been taking a PPI her previous colonoscopy done in the past 2-3 years she denies any melena there is no hematochezia Past Medical History Cardiac Medical History: Reports: Coronary Artery Disease - HIGH CHOLESTEROL, Hyperlipidema, Hypertension Denies: Myocardial Infarction Pulmonary Medical History: Reports: Sleep Apnea Denies: Asthma, Bronchitis, Chronic Obstructive Pulmonary Disease (COPD), Pneumonia Neurological Medical History: Denies: Seizures Endocrine Medical History: Reports: Hypothyroidism GI Medical History: Reports: Gastroesophageal Reflux Disease - Severe, Hiatal Hernia - Sliding Musculoskeltal Medical History: Denies: Arthritis Hematology: Reports: Anemia - TX WITH IRON Past Surgical History Past Surgical History: Reports: Adenoidectomy, Appendectomy - 2016, Cholecystectomy Denies: Hysterectomy Social History Smoking Status: Never Smoker Frequency of Alcohol Use: Social Hx Prescription Drug Abuse: No - Advance Directive Resuscitation Status: Full Code Family History Family History: Hypertension Parental Family History Reviewed: Yes Children Family History Reviewed: Unknown Sibling(s) Family History Reviewed.: Unknown Medication/Allergy Home Medications: Atorvastatin Calcium [Lipitor 20 mg Tablet] 20 mg PO DAILY 11/01/17 Cholecalciferol (Vitamin D3) [Vitamin D3 2000 unit Tablet] 2,000 unit PO DAILY 11/01/17 Ibuprofen [Motrin 800 mg Tablet] 800 mg PO TIDP PRN 11/01/17 Levothyroxine Sodium [Synthroid] 200 mcg PO Q6AM 11/01/17 Losartan Potassium [Cozaar 100 mg Tablet] 100 mg PO DAILY 11/01/17 Multivitamin [Daily Multiple Vitamin] 1 tab PO DAILY 11/01/17 Ondansetron [Zofran Odt 4 mg Tablet] 4 mg PO TIDP PRN 11/01/17 Allergies/Adverse Reactions: Sulfa (Sulfonamide Antibiotics) Allergy (Severe, Verified 11/01/17 10:43) THROAT SWELLING erythromycin base [Erythromycin Base] Allergy (Intermediate, Verified 11/01/17 10:43) RASH, VOMITING Review of Systems Constitutional: ABSENT: fever(s), headache(s), night sweats, weakness Eyes: ABSENT: visual disturbances Ears: ABSENT: hearing changes Nose, Mouth, and Throat: ABSENT: mouth pain Cardiovascular: ABSENT: edema, orthropnea Respiratory: ABSENT: dyspnea, hemoptysis Gastrointestinal: ABSENT: hematemesis, hematochezia, melena Genitourinary: ABSENT: dysuria, hematuria Musculoskeletal: ABSENT: joint swelling Integumentary: ABSENT: pruritus Neurological: ABSENT: syncope, tingling, tremor(s), vertigo Endocrine: ABSENT: polydipsia, polyphagia, polyuria Hematologic/Lymphatic: ABSENT: easy bruising Physical Exam Vital Signs: Temp Pulse Resp BP Pulse Ox 97.4 F 86 18 143/108 H 94 11/01/17 10:54 11/01/17 10:54 11/02/17 08:00 11/02/17 10:07 11/02/17 11:25 General appearance: PRESENT: well-developed, well-nourished Head exam: PRESENT: atraumatic, normocephalic Eye exam: PRESENT: EOMI, PERRLA. ABSENT: nystagmus, periorbital swelling, scleral icterus Mouth exam: PRESENT: moist, neck supple Throat exam: ABSENT: tonsillar exudate, tonsillogmegaly Neck exam: ABSENT: meningismus, tenderness, thyromegaly Respiratory exam: PRESENT: symmetrical, tachypnea. ABSENT: unlabored, wheezes Cardiovascular exam: PRESENT: RRR, +S1, +S2 GI/Abdominal exam: PRESENT: soft. ABSENT: rebound, rigid, tenderness Extremities exam: ABSENT: joint swelling Musculoskeletal exam: PRESENT: full ROM Neurological exam: PRESENT: oriented to time, oriented to situation, reflexes normal, CN II-XII grossly intact Psychiatric exam: PRESENT: manic Skin exam: PRESENT: normal color. ABSENT: mottled, pallor, petechiae, urticaria , vesicles Results Laboratory Results: 11/02/17 11/02/17 05:10 05:10 Triglycerides 200 H Cholesterol 265.99 H LDL Cholesterol Direct 196 H VLDL Cholesterol 40.0 H HDL Cholesterol 71 TSH 28.80 H Free T4 0.87 11/01/17 11/01/17 18:00 23:50 Troponin I < 0.012 < 0.012 Impressions: Chest X-Ray 11/01/17 11:25 IMPRESSION: NO SIGNIFICANT RADIOGRAPHIC FINDING IN THE CHEST. Abdomen Ultrasound 11/01/17 12:23 IMPRESSION: FATTY INFILTRATION OF THE LIVER. Status post cholecystectomy. No other significant intra-abdominal abnormalities were identified. Other findings as noted above Abdomen/Pelvis CT 11/02/17 00:00 IMPRESSION: 1. No pulmonary embolus identified. 2. No acute abnormality in the abdomen identified to explain patient's symptoms identified. 3. Hepatic steatosis. This exam was performed according to our departmental dose-optimization program, which includes automated exposure control, adjustment of the mA and/or kV according to patient size and/or use of iterative reconstruction technique. Chest/Abdomen CTA 11/02/17 00:00 IMPRESSION: 1. No pulmonary embolus identified. 2. No acute abnormality in the abdomen identified to explain patient's symptoms identified. 3. Hepatic steatosis. This exam was performed according to our departmental dose-optimization program, which includes automated exposure control, adjustment of the mA and/or kV according to patient size and/or use of iterative reconstruction technique. Head CT 11/02/17 00:00 IMPRESSION: 1. No acute intracranial abnormality identified. This exam was performed according to our departmental dose-optimization program, which includes automated exposure control, adjustment of the mA and/or kV according to patient size and/or use of iterative reconstruction technique. Assessment & Plan - Diagnosis (1) Diarrhea Plan: had previous colonoscopy done, biopsies are negative she states has worms, please check stool samples for ova and parasites if positive, she can be treated she has been stating this ever since I first saw her several years ago perhaps even prophylactic treatment may be useful (2) Chest pain Qualifiers: Chest pain type: unspecified Qualified Code(s): R07.9 - Chest pain, unspecified Plan: rule out true cardiac disease has GERD previous EGD done, Mercedes's has been ablated start PPI labs are normal, no melena no urgent indication for any scopes for now (3) GERD (gastroesophageal reflux disease) Plan: start PPI, has had cholecystectomy rule out for true cardiac disease,consult cardiology for her CT, ultrasound noted no pulmonary emboli are noted
[2017-11-02] MEDS ORDERED: FENOFIBRATE NANOCRYSTALLIZED 48 MG TABLET PO SCH (13:00)
[2017-11-02] MEDS ORDERED: AMINOPHYLLINE INJ/PF 250 MG/10 ML SDV IV ONE (14:39)
[2017-11-02] MEDS ORDERED: REGADENOSON INJ 0.4 MG/5 ML DISP.SYRIN IV ONE (14:39)
[2017-11-02 15:06] LABS: BLOOD PARASITE THICK SMEAR NO ORGANISMS SEEN
[2017-11-02 15:08] LABS: PATH REVIEW PATHOLOGIST REVIEWED
--- NOTE | 2017-11-02 15:10 | DRAGON STRESS TEST REPORT ---
INTRAVENOUS LEXISCAN CARDIOLITE STRESS TEST USING SINGLE PHOTON EMMISION COMPUTERIZED TOMOGRAPHIC. DATE OF PROCEDURE: November 02, 2017, INDICATION : Chest pain CARDIAC RISK FACTORS: Diabetes, hypertension, dyslipidemia, family history of CAD RESTING EKG: Sinus rhythm without any baseline ST-T wave changes STRESS EKG: No significant changes noted with LexiScan bolus REASON FOR TERMINATION: Protocol. PROCEDURE REPORT: Baseline heart rate 59 beats per minute with blood pressure of 146/98. Patient had no significant complaints. Heart rate at 2 minutes post bolus 93 with a blood pressure of 135/96. 3 minutes post bolus heart rate 85 with blood pressure of 128/95. No significant EKG changes were noted. Patient had no significant complaints during the procedure or postprocedure. Patient injected with Aminophyllin 75 mg at 3 minutes or later after Lexiscan bolus. CONCLUSIONS: Normal EKG and hemodynamic response to IV LexiScan. NUCLEAR DATA: At rest the patient was given 14.57 millicuries of technetium 99 sestamibi injected intravenously. As per protocol rest gated SPECT images were obtained. On day of stress test, the patient was given intravenous LexiScan at a dose of 0.4 mg in 5 mL intravenously, followed by flush with normal saline. Subsequently the stress dose of 45.7 millicuries of technetium 99 sestamibi was injected intravenously. As per protocol stress gated images were obtained. NUCLEAR INTERPRETATION: Both raw and processed data were used for interpretation. Visual, qualitative, computer-generated quantitative data was used. There was good myocardial uptake of technetium compound. Motion artifact and soft tissue attenuations were noted. Increased visceral uptake was noted. No definitive areas of transient perfusion defect noted, No definitive areas of fixed perfusion defect or scars noted. EKG gated imaging showed LV EF at 52 %, rest and stress gated EF similar visually. T. I D. ratio was 1.06. Lung heart ratio noted to be within normal limits 0.28. No significant extracardiac and abnormal radiotracer activities were noted. RV free wall uptake noted to be borderline increased, this is consistent with probable RVH. IMPRESSION: Also refer to comments under nuclear interpretation. Also test results needs to be interpreted in the context of pretest probability. 1. No definitive areas of transient perfusion defect noted. 2. There is no definitive scintigraphic evidence of myocardial infarction/scar. 3. EKG gated imaging shows left ventricular ejection fraction of approx. 52 %. 4. RV free wall uptake noted to be borderline increased, this is consistent with probable RVH. Clinical correlation requested as occasionally single vessel disease or balanced ischemia could be missed. In approximately 10% of the cases Lexiscan may not cause adequate vasodilatory stress. RECOMMENDATIONS: Aggressive risk factor modification and medical management. Further evaluation may be needed if continued symptoms or other high risk indicators are noted on clinical evaluation. Close cardiology follow-up is also recommended. Clinical correlation with echocardiogram derived ejection fraction. Inability to exercise by itself can lead to increased cardiovascular event risks. Consider cardiology consultation and or follow-up if clinically indicated. I am available for cardiology evaluation and consultation if requested by the shampoo technician, unless patient already has a entry specialist. BHARATHI
[2017-11-02] MEDS: ATORVASTATIN CALCIUM 20 MG TABLET PO SCH (22:14)
--- NOTE | 2017-11-02 23:32 | PDOC H&P ---
History of Present Illness Admission Date/PCP: 11/01/17 16:07 LULU CARLOS MD Patient complains of: Chest pain, stomach pain, headache, diarrhea. History of Present Illness: SHENG SANTILLAN is a 52 year old female history with diabetes, hypertension, hypothyroidism and obesity presenting with a 1 day history of chest pain. Patient states she try to set up and felt dizzy. Patient states she had some squeezing and radiation of to her shoulders and then it stopped. Patient states that the chest pain went away after she was given a nitro patch. Patient however developed a severe headache once the patch was placed. Patient states she has had chest pain off and . Patient also complaining of headache and acute vision change. Patient states that she has had headaches in the past due to her hypertension. She also complained of right sided abdominal pain which has been going on for quite some time. Patient states this started when she had her abdominal surgeries. Patient claims to have stool with worms in it. Patient states she has pets at home. She has a dog, rabbit and turtle. Patient states she goes to the settings quite a bit. She also has chronic diarrhea. Patient does follow-up with gastroenterology. Patient states she follows up with Dr. Vargas and has had several EGD and colonoscopies. ED patient was given praziquantel. Patient was given nitroglycerin. Patient nitro glycerin was discontinued she developed a headache. Patient was given Tylenol. Patient was brought in for observation for chest pain. Past Medical History Cardiac Medical History: Reports: Coronary Artery Disease - HIGH CHOLESTEROL, Hyperlipidema, Hypertension Denies: Myocardial Infarction Pulmonary Medical History: Reports: Sleep Apnea Denies: Asthma, Bronchitis, Chronic Obstructive Pulmonary Disease (COPD), Pneumonia Neurological Medical History: Denies: Seizures Endocrine Medical History: Reports: Hypothyroidism GI Medical History: Reports: Gastroesophageal Reflux Disease - Severe, Hiatal Hernia - Sliding Musculoskeltal Medical History: Denies: Arthritis Hematology: Reports: Anemia - TX WITH IRON Past Surgical History Past Surgical History: Reports: Adenoidectomy, Appendectomy - 2016, Cholecystectomy Denies: Hysterectomy Social History Smoking Status: Never Smoker Frequency of Alcohol Use: Social Hx Prescription Drug Abuse: No - Advance Directive Resuscitation Status: Full Code Family History Family History: Hypertension Parental Family History Reviewed: No Children Family History Reviewed: No Sibling(s) Family History Reviewed.: No Medication/Allergy Home Medications: Atorvastatin Calcium [Lipitor 20 mg Tablet] 20 mg PO DAILY 11/01/17 Cholecalciferol (Vitamin D3) [Vitamin D3 2000 unit Tablet] 2,000 unit PO DAILY 11/01/17 Ibuprofen [Motrin 800 mg Tablet] 800 mg PO TIDP PRN 11/01/17 Levothyroxine Sodium [Synthroid] 200 mcg PO Q6AM 11/01/17 Losartan Potassium [Cozaar 100 mg Tablet] 100 mg PO DAILY 11/01/17 Multivitamin [Daily Multiple Vitamin] 1 tab PO DAILY 11/01/17 Ondansetron [Zofran Odt 4 mg Tablet] 4 mg PO TIDP PRN 11/01/17 Allergies/Adverse Reactions: Sulfa (Sulfonamide Antibiotics) Allergy (Severe, Verified 11/01/17 10:43) THROAT SWELLING erythromycin base [Erythromycin Base] Allergy (Intermediate, Verified 11/01/17 10:43) RASH, VOMITING Review of Systems Constitutional: PRESENT: weight gain. ABSENT: chills, fever(s), headache(s), weight loss Eyes: ABSENT: visual disturbances Ears: ABSENT: hearing changes Cardiovascular: PRESENT: chest pain. ABSENT: dyspnea on exertion, edema, orthropnea, palpitations Respiratory: ABSENT: cough, hemoptysis Gastrointestinal: PRESENT: abdominal pain, bloating, diarrhea. ABSENT: constipation, hematemesis, hematochezia, nausea, vomiting Genitourinary: ABSENT: dysuria, hematuria Musculoskeletal: ABSENT: joint swelling Integumentary: ABSENT: rash, wounds Neurological: PRESENT: dizziness. ABSENT: abnormal gait, abnormal speech, confusion, focal weakness, syncope Psychiatric: ABSENT: anxiety, depression, homidical ideation, suicidal ideation Endocrine: ABSENT: cold intolerance, heat intolerance, polydipsia, polyuria Hematologic/Lymphatic: ABSENT: easy bleeding, easy bruising Physical Exam Vital Signs: Temp Pulse Resp BP Pulse Ox 97.4 F 86 22 H 162/98 H 97 11/01/17 10:54 11/01/17 10:54 11/01/17 14:30 11/01/17 14:30 11/01/17 14:30 General appearance: PRESENT: mild distress, obese Head exam: PRESENT: normocephalic Eye exam: PRESENT: EOMI. ABSENT: scleral icterus Ear exam: PRESENT: normal external ear exam Mouth exam: PRESENT: moist Teeth exam: PRESENT: edentulous Neck exam: ABSENT: carotid bruit, JVD, lymphadenopathy, thyromegaly Respiratory exam: PRESENT: clear to auscultation lauren. ABSENT: rales, rhonchi, wheezes Cardiovascular exam: PRESENT: RRR. ABSENT: diastolic murmur, rubs, systolic murmur GI/Abdominal exam: PRESENT: normal bowel sounds, soft, tenderness - Right upper quadrant. ABSENT: distended, guarding, mass, organolmegaly, rebound Rectal exam: PRESENT: deferred Extremities exam: PRESENT: full ROM. ABSENT: calf tenderness, clubbing, pedal edema Neurological exam: PRESENT: alert, awake, oriented to person, oriented to place , oriented to time, oriented to situation, CN II-XII grossly intact. ABSENT: motor sensory deficit Psychiatric exam: PRESENT: appropriate affect, normal mood. ABSENT: homicidal ideation, suicidal ideation Skin exam: PRESENT: dry, intact, warm. ABSENT: cyanosis, rash Results Laboratory Results: 11/01/17 18:00 Troponin I < 0.012 Impressions: Chest X-Ray 11/01/17 11:25 IMPRESSION: NO SIGNIFICANT RADIOGRAPHIC FINDING IN THE CHEST. Abdomen Ultrasound 11/01/17 12:23 IMPRESSION: FATTY INFILTRATION OF THE LIVER. Status post cholecystectomy. No other significant intra-abdominal abnormalities were identified. Other findings as noted above Assessment & Plan - Diagnosis (1) Chest pain Qualifiers: Chest pain type: unspecified Qualified Code(s): R07.9 - Chest pain, unspecified Is this a current diagnosis for this admission?: Yes Plan: With atypical chest pain. Will order CT of the chest. Initial troponin is negative. Will order cardiac echo. Will also order cardiac stress test. Patient started on beta-phuong and aspirin and statin. Nitroglycerin discontinued due to severe headache. Will check lipid panel and hemoglobin A1c. (2) Headache Is this a current diagnosis for this admission?: Yes Plan: Headache possibly due to nitroglycerin. Nitroglycerin discontinued. Patient reports having headaches from time to time. Started on Tylenol. (3) Diarrhea Is this a current diagnosis for this admission?: Yes Plan: With history of chronic diarrhea. Will order C. difficile and stool with parasite and ova. Patient reports having worms in stool. Eosinophils are not elevated .Patient treated for this in the ED with Praziquntel. (4) Obesity (BMI 30-39.9) Is this a current diagnosis for this admission?: Yes Plan: [employer] on diet and physical activity. (5) Hypertension Qualifiers: Hypertension type: essential hypertension Qualified Code(s): I10 - Essential (primary) hypertension Is this a current diagnosis for this admission?: Yes Plan: Continue home medications and monitor. (6) Hyperlipidemia Is this a current diagnosis for this admission?: Yes Plan: Patient already on a statin. Will check lipid panel. - Time Time Spent: 50 to 70 Minutes Anticipated discharge: Home Within: within 48 hours - Inpatient Certification Medical Necessity: Significant Comorbidiites Make Outpatient Treatment Too Risky , Need Close Monitoring Due to Risk of Patient Decompensation
[2017-11-03] MEDS: LEVOTHYROXINE SODIUM 0.1 MG TABLET PO SCH (05:58)
[2017-11-03] MEDS: LANSOPRAZOLE 30 MG TAB.RAP.DR PO SCH (05:58)
[2017-11-03] MEDS: ASPIRIN 81 MG TABLET, CHEWABLE PO SCH (09:21)
[2017-11-03] MEDS: METOPROLOL TARTRATE 25 MG TABLET PO SCH ×2 (09:21→21:41)
[2017-11-03] MEDS: LOSARTAN POTASSIUM 50 MG TABLET PO SCH (09:22)
[2017-11-03] MEDS ORDERED: RIFAXIMIN 550 MG TABLET PO ONE (10:53)
--- NOTE | 2017-11-03 11:31 | Physician Advisory Note ---
Physician Advisor ProgressNote .: Pursuant to the plan for [facility], I have reviewed the medical record for this patient. Physician Advisor Statement: Please consider documentin. "CP, possibly due to " 2. "[chronic] abd pain, possibly due to " Thanks! CK
--- NOTE | 2017-11-03 11:52 | XCELERA REPORT ---
[address] [address] Transthoracic Echocardiogram Report Name: SHENG SANTILLAN Age: 52 yrs Gender: Female : 1965 Patient Status: Inpatient Patient Location: [place] [id number]^A Study Date: 11/02/2017 10:15 AM Height: 66 in Weight: 240 lb BSA: 2.2 m2 Procedure: A complete two-dimensional transthoracic echocardiogram was performed (2D, M-mode, spectral and color flow Doppler). The study was technically adequate with some images being suboptimal in quality. Reason For Study: LV Function, size, wall thickness,Valve Function Ordering Physician: RAJ DE Performed By: Tamara Jolley Interpretation Summary The left ventricular ejection fraction is normal. There is mild concentric left ventricular hypertrophy. Doppler measurements suggest pseudonormalized left ventricular relaxation, which is associated with grade II/IV or mild to moderate diastolic dysfunction The left ventricle is grossly normal size. Wall motion cannot be accurately commented on, but no definite regional wall motion abnormalities noted. The right ventricular systolic function is normal. The left atrium is mildly dilated. The right atrium is normal in size There is a trace amount of mitral regurgitation There is no mitral valve stenosis. There is no aortic valve stenosis No aortic regurgitation is present. There is a trace or physiologic amount of tricuspid regurgitation Tricuspid regurgitation jet envelope not well defined to measure RV systolic pressure accurately. The aortic root is not well visualized but is probably normal size. The inferior vena cava was not well visualized There is no pericardial effusion. MMode/2D Measurements & Calculations RVDd: 3.0 cm LVIDd: 4.1 cm FS: 36.6 % Ao root diam: 3.0 cm IVSd: 1.1 cm LVIDs: 2.6 cm EDV(Teich): 75.3 ml LVPWd: 1.1 cm ESV(Teich): 24.9 ml Ao root area: 7.2 cm2 EF(Teich): 66.9 % LA dimension: 3.8 cm Doppler Measurements & Calculations MV E max lauren: MV P1/2t max lauren: Ao V2 max: LV V1 max P.2 cm/sec 102.7 cm/sec 142.7 cm/sec 3.9 mmHg MV A max lauren: MV P1/2t: 58.9 msec Ao max PG: LV V1 max: 69.1 cm/sec 8.1 mmHg 99.2 cm/sec MV E/A: 1.5 MVA(P1/2t): 3.7 cm2 MV dec slope: 510.7 cm/sec2 MV dec time: 0.21 sec PA V2 max: 95.8 cm/sec PA max P.7 mmHg Left Ventricle The left ventricle is grossly normal size. There is mild concentric left ventricular hypertrophy. The left ventricular ejection fraction is normal. Doppler measurements suggest pseudonormalized left ventricular relaxation, which is associated with grade II/IV or mild to moderate diastolic dysfunction. Wall motion cannot be accurately commented on, but no definite regional wall motion abnormalities noted. Right Ventricle The right ventricle is grossly normal size. There is normal right ventricular wall thickness. The right ventricular systolic function is normal. Atria The right atrium is normal in size. The left atrium is mildly dilated. Interarterial septum not well visualized and not well dopplered. Cannot comment on ASD/PFO presence. Mitral Valve The mitral valve is grossly normal. There is no mitral valve stenosis. There is a trace amount of mitral regurgitation. Aortic Valve The aortic valve is grossly normal. There is no aortic valve stenosis. No aortic regurgitation is present. Tricuspid Valve The tricuspid valve is not well visualized, but is grossly normal. There is no tricuspid stenosis. There is a trace or physiologic amount of tricuspid regurgitation. Tricuspid regurgitation jet envelope not well defined to measure RV systolic pressure accurately. Pulmonic Valve The pulmonic valve is not well visualized. Great Vessels The aortic root is not well visualized but is probably normal size. The inferior vena cava was not well visualized. Effusions There is no pericardial effusion. : RAJ DE > iNcole Enamorado
--- NOTE | 2017-11-03 14:34 | PDOC PROGRESS REPORT ---
Subjective Progress Note for:: 11/02/17 Subjective:: Patient presented with complaints of multiple things. She no longer complaint of chest pain but is still complaining of diarrhea and abdominal pain. Reason For Visit: CHEST PAIN,AND WORMS Physical Exam Vital Signs: Temp Pulse Resp BP Pulse Ox 97.8 F 65 20 135/75 H 92 11/02/17 20:23 11/02/17 20:23 11/02/17 13:04 11/02/17 20:23 11/02/17 20:23 General appearance: PRESENT: no acute distress, obese Head exam: PRESENT: normocephalic Eye exam: PRESENT: EOMI. ABSENT: scleral icterus Ear exam: PRESENT: normal external ear exam Mouth exam: PRESENT: moist Teeth exam: PRESENT: edentulous Neck exam: ABSENT: carotid bruit, JVD, lymphadenopathy, thyromegaly Respiratory exam: PRESENT: clear to auscultation lauren. ABSENT: rales, rhonchi, wheezes Cardiovascular exam: PRESENT: RRR. ABSENT: diastolic murmur, rubs, systolic murmur Pulses: PRESENT: normal dorsalis pedis pul Vascular exam: PRESENT: normal capillary refill GI/Abdominal exam: PRESENT: hyperactive bowel sounds, soft. ABSENT: distended, guarding, mass, organolmegaly, rebound, tenderness Rectal exam: PRESENT: deferred Extremities exam: PRESENT: full ROM. ABSENT: calf tenderness, clubbing, pedal edema Neurological exam: PRESENT: alert, awake, oriented to person, oriented to place , oriented to time, oriented to situation, CN II-XII grossly intact. ABSENT: motor sensory deficit Psychiatric exam: PRESENT: appropriate affect, normal mood. ABSENT: homicidal ideation, suicidal ideation Skin exam: PRESENT: dry, intact, warm. ABSENT: cyanosis, rash Results Laboratory Results: 11/02/17 11/02/17 05:10 05:10 Triglycerides 200 H Cholesterol 265.99 H LDL Cholesterol Direct 196 H VLDL Cholesterol 40.0 H HDL Cholesterol 71 TSH 28.80 H Free T4 0.87 11/01/17 11/01/17 18:00 23:50 Troponin I < 0.012 < 0.012 Impressions: Chest X-Ray 11/01/17 11:25 IMPRESSION: NO SIGNIFICANT RADIOGRAPHIC FINDING IN THE CHEST. Abdomen Ultrasound 11/01/17 12:23 IMPRESSION: FATTY INFILTRATION OF THE LIVER. Status post cholecystectomy. No other significant intra-abdominal abnormalities were identified. Other findings as noted above Abdomen/Pelvis CT 11/02/17 00:00 IMPRESSION: 1. No pulmonary embolus identified. 2. No acute abnormality in the abdomen identified to explain patient's symptoms identified. 3. Hepatic steatosis. This exam was performed according to our departmental dose-optimization program, which includes automated exposure control, adjustment of the mA and/or kV according to patient size and/or use of iterative reconstruction technique. Chest/Abdomen CTA 11/02/17 00:00 IMPRESSION: 1. No pulmonary embolus identified. 2. No acute abnormality in the abdomen identified to explain patient's symptoms identified. 3. Hepatic steatosis. This exam was performed according to our departmental dose-optimization program, which includes automated exposure control, adjustment of the mA and/or kV according to patient size and/or use of iterative reconstruction technique. Head CT 11/02/17 00:00 IMPRESSION: 1. No acute intracranial abnormality identified. This exam was performed according to our departmental dose-optimization program, which includes automated exposure control, adjustment of the mA and/or kV according to patient size and/or use of iterative reconstruction technique. Assessment & Plan - Diagnosis (1) Chest pain Qualifiers: Chest pain type: unspecified Qualified Code(s): R07.9 - Chest pain, unspecified Is this a current diagnosis for this admission?: Yes Plan: Patient with atypical chest pain. Stress test was negative. Patient patient echo (2) Headache Is this a current diagnosis for this admission?: Yes Plan: Headache possibly due to nitroglycerin. Headache now resolved. (3) Diarrhea Is this a current diagnosis for this admission?: Yes Plan: She with chronic diarrhea. C. difficile is negative. Stool study negative for ova and parasite. Will consult GI to evaluate patient. (4) Obesity (BMI 30-39.9) Is this a current diagnosis for this admission?: Yes Plan: [employer] on diet and physical activity. (5) Hypertension Qualifiers: Hypertension type: essential hypertension Qualified Code(s): I10 - Essential (primary) hypertension Is this a current diagnosis for this admission?: Yes Plan: Continue home medications and monitor. (6) Hyperlipidemia Is this a current diagnosis for this admission?: Yes Plan: Continue statin. Patient also started on fenofibrate. (7) Congestive heart failure Qualifiers: Heart failure type: diastolic Is this a current diagnosis for this admission?: Yes Plan: She has grade 2 diastolic dysfunction. Patient does not have any pedal edema. Will continue to monitor. Continue low-sodium diet. - Time Time Spent with patient: 15-24 minutes Anticipated discharge: Home Within: within 48 hours
[2017-11-03] MEDS ORDERED: LIPASE/PROTEASE/AMYLASE 1 CAP CAPSULE.DR PO ONE (14:35)
--- NOTE | 2017-11-03 15:00 | PDOC PROGRESS REPORT ---
Subjective Progress Note for:: 11/03/17 Subjective:: Patient complains of severe abdominal pain. Patient still having diarrhea. Explained to her that her tests are pretty much normal with the exception of a fatty liver and some diastolic heart failure. Discussed with patient about adding some medications to help firm up her stools. Reason For Visit: CHEST PAIN,AND WORMS Physical Exam Vital Signs: Temp Pulse Resp BP Pulse Ox 97.7 F 63 15 156/90 H 97 11/03/17 13:00 11/03/17 13:00 11/03/17 13:00 11/03/17 13:00 11/03/17 13:00 Intake & Output 11/02/17 11/03/17 11/04/17 06:59 06:59 06:59 Intake Total 900 Balance 900 Weight 126.2 kg General appearance: PRESENT: no acute distress, morbidly obese Head exam: PRESENT: normocephalic Eye exam: PRESENT: EOMI. ABSENT: scleral icterus Mouth exam: PRESENT: moist Teeth exam: PRESENT: edentulous Neck exam: ABSENT: carotid bruit, JVD, lymphadenopathy, thyromegaly Respiratory exam: PRESENT: clear to auscultation lauren. ABSENT: rales, rhonchi, wheezes Cardiovascular exam: PRESENT: RRR. ABSENT: diastolic murmur, rubs, systolic murmur Pulses: PRESENT: normal dorsalis pedis pul GI/Abdominal exam: PRESENT: normal bowel sounds, soft. ABSENT: distended, guarding, mass, organolmegaly, rebound, tenderness Rectal exam: PRESENT: deferred Extremities exam: PRESENT: full ROM. ABSENT: calf tenderness, clubbing, pedal edema Neurological exam: PRESENT: alert, awake, oriented to person, oriented to place , oriented to time, oriented to situation, CN II-XII grossly intact. ABSENT: motor sensory deficit Psychiatric exam: PRESENT: appropriate affect, normal mood. ABSENT: homicidal ideation, suicidal ideation Skin exam: PRESENT: dry, intact, warm. ABSENT: cyanosis, rash Results Laboratory Results: 11/01/17 11/01/17 18:00 23:50 Troponin I < 0.012 < 0.012 Impressions: Chest X-Ray 11/01/17 11:25 IMPRESSION: NO SIGNIFICANT RADIOGRAPHIC FINDING IN THE CHEST. Abdomen Ultrasound 11/01/17 12:23 IMPRESSION: FATTY INFILTRATION OF THE LIVER. Status post cholecystectomy. No other significant intra-abdominal abnormalities were identified. Other findings as noted above Abdomen/Pelvis CT 11/02/17 00:00 IMPRESSION: 1. No pulmonary embolus identified. 2. No acute abnormality in the abdomen identified to explain patient's symptoms identified. 3. Hepatic steatosis. This exam was performed according to our departmental dose-optimization program, which includes automated exposure control, adjustment of the mA and/or kV according to patient size and/or use of iterative reconstruction technique. Chest/Abdomen CTA 11/02/17 00:00 IMPRESSION: 1. No pulmonary embolus identified. 2. No acute abnormality in the abdomen identified to explain patient's symptoms identified. 3. Hepatic steatosis. This exam was performed according to our departmental dose-optimization program, which includes automated exposure control, adjustment of the mA and/or kV according to patient size and/or use of iterative reconstruction technique. Head CT 11/02/17 00:00 IMPRESSION: 1. No acute intracranial abnormality identified. This exam was performed according to our departmental dose-optimization program, which includes automated exposure control, adjustment of the mA and/or kV according to patient size and/or use of iterative reconstruction technique. Assessment & Plan - Diagnosis (1) Chest pain Qualifiers: Chest pain type: unspecified Qualified Code(s): R07.9 - Chest pain, unspecified Is this a current diagnosis for this admission?: Yes Plan: Patient is no longer having chest pain. Patient chest pain possibly secondary due to GI etiology. Stress test was negative. (2) Headache Is this a current diagnosis for this admission?: Yes Plan: Headache possibly due to nitroglycerin. Headache now resolved. (3) Diarrhea Is this a current diagnosis for this admission?: Yes Plan: She with chronic diarrhea. C. difficile is negative. Stool study negative for ova and parasite. Patient started on rifaximin and lomotil. (4) Obesity (BMI 30-39.9) Is this a current diagnosis for this admission?: Yes Plan: [employer] on diet and physical activity. (5) Hypertension Qualifiers: Hypertension type: essential hypertension Qualified Code(s): I10 - Essential (primary) hypertension Is this a current diagnosis for this admission?: Yes Plan: Continue home medications and monitor. (6) Hyperlipidemia Is this a current diagnosis for this admission?: Yes Plan: Continue statin and fenofibrate. (7) Congestive heart failure Qualifiers: Heart failure type: diastolic Is this a current diagnosis for this admission?: Yes Plan: She has grade 2 diastolic dysfunction on cardiac echo. Patient does not have any pedal edema. Will continue to monitor. Continue low-sodium diet. (8) Abdominal pain Qualifiers: Abdominal location: epigastric Qualified Code(s): R10.13 - Epigastric pain Is this a current diagnosis for this admission?: Yes Plan: Chronic. Patient may have irritable bowel syndrome. She started on Bentyl, rifaximin and PRN pain medication abdominal pain. - Time Time Spent with patient: 15-24 minutes Anticipated discharge: Home Within: within 24 hours - Inpatient Certification Medical Necessity: Need for Pain Control - Patient with abdominal pain.
[2017-11-03] MEDS: DIPHENOXYLATE HCL/ATROP SULF 2.5-0.025 MG TABLET PO SCH ×3 (15:52→21:41)
[2017-11-03] MEDS: DICYCLOMINE HCL 20 MG TABLET PO SCH ×3 (15:52→21:41)
[2017-11-03] MEDS: LIPASE/PROTEASE/AMYLASE 1 CAP CAPSULE.DR PO SCH (16:49)
[2017-11-03] MEDS: RIFAXIMIN 550 MG TABLET PO SCH (19:06)
--- NOTE | 2017-11-03 20:50 | PDOC CONSULTATION ---
Consultation Consult Date: 11/03/17 Attending physician:: RAJ DE History of Present Illness Admission Date/PCP: 11/01/17 16:07 LULU CARLOS MD History of Present Illness: SHENG SANTILLAN is a 52 year old female history with diabetes, hypertension, hypothyroidism and obesity presenting with a 1 day history of chest pain. Patient states she try to set up and felt dizzy. Patient states she had some squeezing and radiation of to her shoulders and then it stopped. Patient states that the chest pain went away after she was given a nitro patch. Patient however developed a severe headache once the patch was placed. Patient states she has had chest pain off and . Patient also complaining of headache and acute vision change. Patient states that she has had headaches in the past due to her hypertension. She also complained of right sided abdominal pain which has been going on for quite some time. Patient states this started when she had her abdominal surgeries. Patient claims to have stool with worms in it. Patient states she has pets at home. She has a dog, rabbit and turtle. Patient states she goes to the settings quite a bit. She also has chronic diarrhea. Patient does follow-up with gastroenterology. Patient states she follows up with Dr. Vargas and has had several EGD and colonoscopies. ED patient was given praziquantel. Patient was given nitroglycerin. Patient nitro glycerin was discontinued she developed a headache. Patient was given Tylenol. Patient was brought in for observation for chest pain. Patient had nuclear stress test yesterday which was negative for any pharmacologic stress-induced ischemia but last night patient had chest discomfort. Patient gives history of hiatal hernia with gastroesophageal reflux and is status post Abilio fundoplication surgery. Past Medical History Cardiac Medical History: Reports: Coronary Artery Disease - HIGH CHOLESTEROL, Hyperlipidema, Hypertension Denies: Myocardial Infarction Pulmonary Medical History: Reports: Sleep Apnea Denies: Asthma, Bronchitis, Chronic Obstructive Pulmonary Disease (COPD), Pneumonia Neurological Medical History: Denies: Seizures Endocrine Medical History: Reports: Hypothyroidism GI Medical History: Reports: Gastroesophageal Reflux Disease - Severe, Hiatal Hernia - Sliding Musculoskeltal Medical History: Denies: Arthritis Hematology: Reports: Anemia - TX WITH IRON Past Surgical History Past Surgical History: Reports: Adenoidectomy, Appendectomy - 2016, Cholecystectomy Denies: Hysterectomy Social History Smoking Status: Never Smoker Frequency of Alcohol Use: Social Hx Prescription Drug Abuse: No - Advance Directive Resuscitation Status: Full Code Family History Family History: Hypertension Parental Family History Reviewed: Yes Children Family History Reviewed: Yes Sibling(s) Family History Reviewed.: Yes Medication/Allergy Home Medications: Atorvastatin Calcium [Lipitor 20 mg Tablet] 20 mg PO DAILY 11/01/17 Cholecalciferol (Vitamin D3) [Vitamin D3 2000 unit Tablet] 2,000 unit PO DAILY 11/01/17 Ibuprofen [Motrin 800 mg Tablet] 800 mg PO TIDP PRN 11/01/17 Levothyroxine Sodium [Synthroid] 200 mcg PO Q6AM 11/01/17 Losartan Potassium [Cozaar 100 mg Tablet] 100 mg PO DAILY 11/01/17 Multivitamin [Daily Multiple Vitamin] 1 tab PO DAILY 11/01/17 Ondansetron [Zofran Odt 4 mg Tablet] 4 mg PO TIDP PRN 11/01/17 Dicyclomine HCl [Bentyl 20 mg Tablet] 20 mg PO Q6 PRN 30 Days #30 tablet Diphenoxylate HCl/Atrop Sulf [Lomotil 2.5 mg Tablet] 1 tab PO Q6 PRN 30 Days # 30 tablet 11/04/17 Lansoprazole [Prevacid 30 mg Odt Tablet] 30 mg PO BID 30 Days #60 tab.rap. 05/16 Lipase/Protease/Amylase [Pancrease Mt-10 Ec Capsule] 1 each PO TID 90 Days #90 capsule. 11/04/17 Oxycodone HCl 5 mg PO Q6 PRN 2 Days #8 capsule 11/04/17 Rifaximin [Xifaxan 550 mg Tablet] 550 mg PO BID 14 Days #28 tablet 11/04/17 Allergies/Adverse Reactions: Sulfa (Sulfonamide Antibiotics) Allergy (Severe, Verified 11/01/17 10:43) THROAT SWELLING erythromycin base [Erythromycin Base] Allergy (Intermediate, Verified 11/01/17 10:43) RASH, VOMITING Review of Systems Review of Systems: Please see history of present illness and past medical history as wall. Constitutional: No fever or chills reported. Head : No recent chronic headaches, recent head injury. Eyes: No recent eye pain, diplopia, redness, discharge, acute visual changes. Ears: No recent chronic ear pain, acute hearing loss, ear discharge. Oral cavity: No recent ulcerations, bleeding, oral cavity discomfort. Neck: No recent acute neck pain reported. Hematologic: No recent easy bruising or bleeding or hematologic malignancy reported. Lymphatic: No recent lymphatic malignancy, chronic lymphadenopathy reported yet Cardiovascular system review: See history of present illness. Respiratory system review: No recent chronic cough, hemoptysis, blood clots in the lungs reported. Mild Shortness of breath on exertion Gastrointestinal system review: Patient has noted some diarrhea, denies hematemesis, melena, recent change in bowel habits. Genitourinary system review: No recent acute or chronic hematuria, flank pain, UTI etc. reported. Skin system review: Negative for any recent abnormal bruising, no rash, no pruritus reported. Neurologic: No prior history of strokes, mini strokes, seizure disorder. Psychologic: No history of major psychosis or major depression reported. Musculoskeletal: Minor aches and pains reported. No acute joint swelling reported. Endocrine: No recent polyuria, polydipsia, recent heat or cold intolerance. Physical Exam Vital Signs: Temp Pulse Resp BP Pulse Ox 97.7 F 64 16 152/89 H 100 11/03/17 16:16 11/03/17 16:16 11/03/17 16:16 11/03/17 16:16 11/03/17 16:16 Intake & Output 11/02/17 11/03/17 11/04/17 06:59 06:59 06:59 Intake Total 900 2560 Balance 900 2560 Weight 126.2 kg Results Laboratory Results: 11/01/17 11/01/17 18:00 23:50 Troponin I < 0.012 < 0.012 Impressions: Chest X-Ray 11/01/17 11:25 IMPRESSION: NO SIGNIFICANT RADIOGRAPHIC FINDING IN THE CHEST. Abdomen Ultrasound 11/01/17 12:23 IMPRESSION: FATTY INFILTRATION OF THE LIVER. Status post cholecystectomy. No other significant intra-abdominal abnormalities were identified. Other findings as noted above Abdomen/Pelvis CT 11/02/17 00:00 IMPRESSION: 1. No pulmonary embolus identified. 2. No acute abnormality in the abdomen identified to explain patient's symptoms identified. 3. Hepatic steatosis. This exam was performed according to our departmental dose-optimization program, which includes automated exposure control, adjustment of the mA and/or kV according to patient size and/or use of iterative reconstruction technique. Chest/Abdomen CTA 11/02/17 00:00 IMPRESSION: 1. No pulmonary embolus identified. 2. No acute abnormality in the abdomen identified to explain patient's symptoms identified. 3. Hepatic steatosis. This exam was performed according to our departmental dose-optimization program, which includes automated exposure control, adjustment of the mA and/or kV according to patient size and/or use of iterative reconstruction technique. Head CT 11/02/17 00:00 IMPRESSION: 1. No acute intracranial abnormality identified. This exam was performed according to our departmental dose-optimization program, which includes automated exposure control, adjustment of the mA and/or kV according to patient size and/or use of iterative reconstruction technique. Assessment & Plan - Diagnosis (1) Chest pain Qualifiers: Chest pain type: unspecified Qualified Code(s): R07.9 - Chest pain, unspecified Is this a current diagnosis for this admission?: Yes (2) Hyperlipidemia Is this a current diagnosis for this admission?: Yes (3) Hypertension Qualifiers: Hypertension type: essential hypertension Qualified Code(s): I10 - Essential (primary) hypertension Is this a current diagnosis for this admission?: Yes (4) GERD (gastroesophageal reflux disease) Qualifiers: Esophagitis presence: esophagitis presence not specified Qualified Code(s) : K21.9 - Gastro-esophageal reflux disease without esophagitis Is this a current diagnosis for this admission?: Yes (5) Hiatal hernia Is this a current diagnosis for this admission?: Yes (6) RENUKA (obstructive sleep apnea) Is this a current diagnosis for this admission?: Yes - Notes Notes: Patient had recurrent chest pain last night. Will repeat an EKG tomorrow morning to look for any evolving changes. Cardiac enzymes so far has been negative. Stress test results reviewed and was negative for significant ischemia. Chest pain: Based on negative nuclear stress test, it is felt that patient be evaluated for noncardiac chest pain. Clinically feel it is most likely gastroesophageal reflux disease. Hypertension: Reasonably well controlled. Blood pressure goal in this patient is 135/85 or less. This was discussed with the patient. Currently blood pressure under reasonable control. Better medication for this patient are JOSELUIS inhibitor/ARB/beta phuong etc. discussed side effects of uncontrolled hypertension and also severe hypotension. Hyperlipidemia: LDL goal is less than 70. Recommend statin therapy at least intermediate or high dose, of high potency status. Periodic lipid panel and liver panel is indicated. Patient to report any significant muscle discomfort or other side effects. Gastroesophageal reflux disease patient seems to have this condition. Weigh loss and treatment of sleep apnea if present and when treated tends to help this condition. Recommend small meals, avoid eating within 3 hours of bedtime, avoid other food substances which had led to reflux in the past. Proton pump inhibitors and other antacids are recommended. Hiatal hernia: Patient describes history of previous fundoplication surgery. Obstructive sleep apnea: Patient advised treatment for this condition. I will be happy to see her in this regard. - Time Time Spent: 30 to 50 Minutes - More than 50% of the time spent coordinating care , discussing management plans with involved caregivers. Management plans discussed with involved personnels. Medical decision making was of moderate to high complexity, patient's has multiple comorbidities. Medications reviewed and adjusted accordingly: Yes
[2017-11-03] MEDS ORDERED: ATORVASTATIN CALCIUM 80 MG TABLET PO SCH (22:00)
--- NOTE | 2017-11-03 22:03 | EKG REPORT ---
SEVERITY:- NORMAL ECG - SINUS RHYTHM : Confirmed by: Nicole Enamorado 03-Nov-2017 22:02:15
[2017-11-03] MEDS ORDERED: LANSOPRAZOLE 30 MG TAB.RAP.DR PO ONE (22:30)
[2017-11-04] MEDS: LANSOPRAZOLE 30 MG TAB.RAP.DR PO SCH (05:52)
[2017-11-04] MEDS: LEVOTHYROXINE SODIUM 0.1 MG TABLET PO SCH (05:56)
[2017-11-04] MEDS ORDERED: LANSOPRAZOLE 30 MG TAB.RAP.DR PO SCH (06:00)
[2017-11-04 08:00] VITALS: BP 137/80
--- NOTE | 2017-11-04 08:44 | EKG REPORT ---
SEVERITY:- BORDERLINE ECG - SINUS RHYTHM BORDERLINE T ABNORMALITIES, ANTERIOR LEADS : Confirmed by: Nicole Enamorado 04-Nov-2017 08:43:02
[2017-11-04] MEDS: LIPASE/PROTEASE/AMYLASE 1 CAP CAPSULE.DR PO SCH (08:52)
[2017-11-04] MEDS ORDERED: FENOFIBRATE NANOCRYSTALLIZED 48 MG TABLET PO SCH (10:00)
[2017-11-04] MEDS: RIFAXIMIN 550 MG TABLET PO SCH (10:51)
[2017-11-04] MEDS: ASPIRIN 81 MG TABLET, CHEWABLE PO SCH (11:02)
[2017-11-04] MEDS: LOSARTAN POTASSIUM 50 MG TABLET PO SCH (11:02)
[2017-11-04] MEDS: DICYCLOMINE HCL 20 MG TABLET PO SCH (11:04)
[2017-11-04] MEDS: DIPHENOXYLATE HCL/ATROP SULF 2.5-0.025 MG TABLET PO SCH (11:05)
[2017-11-04] MEDS: METOPROLOL TARTRATE 25 MG TABLET PO SCH (11:05)
[2017-11-04] MEDS ORDERED: INFLUENZA ADLT QUAD (36MOS+) 2017-18 VAC 0.5 ML SYR IM PRN (11:09)
--- NOTE | 2017-11-04 12:46 | PDOC DISCHARGE SUMMARY ---
General - Admit/Disc Date/PCP Admission Date/Primary Care Provider: 11/01/17 16:07 LULU CARLOS MD Discharge Date: 11/04/17 - Discharge Diagnosis (1) Chest pain Is this a current diagnosis for this admission?: Yes (2) Headache Is this a current diagnosis for this admission?: Yes (3) Diarrhea Is this a current diagnosis for this admission?: Yes (4) Obesity (BMI 30-39.9) Is this a current diagnosis for this admission?: Yes (5) Hypertension Is this a current diagnosis for this admission?: Yes (6) Hyperlipidemia Is this a current diagnosis for this admission?: Yes (7) Congestive heart failure Is this a current diagnosis for this admission?: Yes (8) Abdominal pain Is this a current diagnosis for this admission?: Yes - Additional Information Resuscitation Status: Full Code Discharge Diet: As Tolerated Discharge Activity: Weigh Daily Prescriptions: Dicyclomine HCl [Bentyl 20 mg Tablet] 20 mg PO Q6 PRN 30 Days #30 tablet PRN Reason: Abdominal Cramping Diphenoxylate HCl/Atrop Sulf [Lomotil 2.5 mg Tablet] 1 tab PO Q6 PRN 30 Days # 30 tablet PRN Reason: Diarrhea Lansoprazole [Prevacid 30 mg Odt Tablet] 30 mg PO BID 30 Days #60 tab.rap. Lipase/Protease/Amylase [Pancrease Mt-10 Ec Capsule] 1 each PO TID 90 Days #90 capsule. Oxycodone HCl 5 mg PO Q6 PRN 2 Days #8 capsule PRN Reason: Rifaximin [Xifaxan 550 mg Tablet] 550 mg PO BID 14 Days #28 tablet Home Medications: Atorvastatin Calcium [Lipitor 20 mg Tablet] 20 mg PO DAILY 11/01/17 Cholecalciferol (Vitamin D3) [Vitamin D3 2000 unit Tablet] 2,000 unit PO DAILY 11/01/17 Ibuprofen [Motrin 800 mg Tablet] 800 mg PO TIDP PRN 11/01/17 Levothyroxine Sodium [Synthroid] 200 mcg PO Q6AM 11/01/17 Losartan Potassium [Cozaar 100 mg Tablet] 100 mg PO DAILY 11/01/17 Multivitamin [Daily Multiple Vitamin] 1 tab PO DAILY 11/01/17 Ondansetron [Zofran Odt 4 mg Tablet] 4 mg PO TIDP PRN 11/01/17 Dicyclomine HCl [Bentyl 20 mg Tablet] 20 mg PO Q6 PRN 30 Days #30 tablet Diphenoxylate HCl/Atrop Sulf [Lomotil 2.5 mg Tablet] 1 tab PO Q6 PRN 30 Days # 30 tablet 11/04/17 Lansoprazole [Prevacid 30 mg Odt Tablet] 30 mg PO BID 30 Days #60 tab.rap. 05/16 Lipase/Protease/Amylase [Pancrease Mt-10 Ec Capsule] 1 each PO TID 90 Days #90 capsule. 11/04/17 Oxycodone HCl 5 mg PO Q6 PRN 2 Days #8 capsule 11/04/17 Rifaximin [Xifaxan 550 mg Tablet] 550 mg PO BID 14 Days #28 tablet 11/04/17 History of Present Illness History of Present Illness: SHENG SANTILLAN is a 52 year old female history with diabetes, hypertension, hypothyroidism and obesity presenting with a 1 day history of chest pain. Patient states she try to set up and felt dizzy. Patient states she had some squeezing and radiation of to her shoulders and then it stopped. Patient states that the chest pain went away after she was given a nitro patch. Patient however developed a severe headache once the patch was placed. Patient states she has had chest pain off and . Patient also complaining of headache and acute vision change. Patient states that she has had headaches in the past due to her hypertension. She also complained of right sided abdominal pain which has been going on for quite some time. Patient states this started when she had her abdominal surgeries. Patient claims to have stool with worms in it. Patient states she has pets at home. She has a dog, rabbit and turtle. Patient states she goes to the settings quite a bit. She also has chronic diarrhea. Patient does follow-up with gastroenterology. Patient states she follows up with Dr. Powers and has had several EGD and colonoscopies. ED patient was given praziquantel. Patient was given nitroglycerin. Patient nitro glycerin was discontinued she developed a headache. Patient was given Tylenol. Patient was brought in for observation for chest pain. The original H&P was dictated by myself Dr. Evelyne kenny. Please refer to it for complete details. Hospital Course Hospital Course: Patient presented to the hospital with multiple complaints. 1 of them being chest pain. Patient was evaluated for her chest pain. Stress test was negative. Cardiac echo did show normal EF however she does have a 2 diastolic dysfunction however appears euvolemic. Patient is on Cozaar however attempts to place patient on beta-phuong resulted in bradycardia. Patient is not being discharged on a beta-phuong because of this. CTA of her chest was negative for pulmonary embolism. Patient later on stated that she was having reflux symptoms with metallic taste. Patient states that this did improve with PPI. Advised patient that she should continue her PPI as her chest pain may be due to her GI problems. Patient did have a headache however this was most likely due to the nitroglycerin. Once the nitroglycerin was removed patient headache did resolve. Patient has a history of chronic diarrhea. Patient reports having worms in her stools. However patient has been evaluated for this and she does not have worms in her stool. Patient was started on rifaximin, Lomotil and Pancrease which helped with her diarrhea symptoms. Patient was negative for C. difficile. Patient has hypothyroidism. Patient TSH was elevated however her T4 was within normal limits. Patient also has chronic abdominal pain along with diarrhea. Patient has been evaluated extensively by GI. There is concerned that patient may have irritable bowel syndrome. Patient added on Bentyl, rifaximin and Lomotil for her symptoms. Patient has hyperlipidemia and was continued on her home dose of her statin. Physical Exam Vital Signs: Temp Pulse Resp BP Pulse Ox 97.5 F 53 L 16 137/80 H 96 11/04/17 12:05 11/04/17 12:05 11/04/17 12:05 11/04/17 12:05 11/04/17 12:05 Intake & Output 11/03/17 11/04/17 11/05/17 06:59 06:59 06:59 Intake Total 900 3760 Output Total 2 Balance 900 3758 Weight 126.2 kg 129.6 kg General appearance: PRESENT: no acute distress, obese Head exam: PRESENT: normocephalic Eye exam: PRESENT: EOMI. ABSENT: scleral icterus Ear exam: PRESENT: normal external ear exam Mouth exam: PRESENT: moist Teeth exam: PRESENT: other - No upper dentition Neck exam: ABSENT: carotid bruit, JVD, lymphadenopathy, thyromegaly Respiratory exam: PRESENT: clear to auscultation lauren. ABSENT: rales, rhonchi, wheezes Cardiovascular exam: PRESENT: RRR. ABSENT: diastolic murmur, rubs, systolic murmur Pulses: PRESENT: normal dorsalis pedis pul Vascular exam: PRESENT: normal capillary refill GI/Abdominal exam: PRESENT: hyperactive bowel sounds, soft. ABSENT: distended, guarding, mass, organolmegaly, rebound, tenderness Rectal exam: PRESENT: deferred Extremities exam: PRESENT: full ROM. ABSENT: calf tenderness, clubbing, pedal edema Neurological exam: PRESENT: alert, awake, oriented to person, oriented to place , oriented to time, oriented to situation, CN II-XII grossly intact. ABSENT: motor sensory deficit Psychiatric exam: PRESENT: appropriate affect, normal mood. ABSENT: homicidal ideation, suicidal ideation Skin exam: PRESENT: dry, intact, warm. ABSENT: cyanosis, rash Results Laboratory Results: 11/01/17 11/01/17 18:00 23:50 Troponin I < 0.012 < 0.012 Impressions: Chest X-Ray 11/01/17 11:25 IMPRESSION: NO SIGNIFICANT RADIOGRAPHIC FINDING IN THE CHEST. Abdomen Ultrasound 11/01/17 12:23 IMPRESSION: FATTY INFILTRATION OF THE LIVER. Status post cholecystectomy. No other significant intra-abdominal abnormalities were identified. Other findings as noted above Abdomen/Pelvis CT 11/02/17 00:00 IMPRESSION: 1. No pulmonary embolus identified. 2. No acute abnormality in the abdomen identified to explain patient's symptoms identified. 3. Hepatic steatosis. This exam was performed according to our departmental dose-optimization program, which includes automated exposure control, adjustment of the mA and/or kV according to patient size and/or use of iterative reconstruction technique. Chest/Abdomen CTA 11/02/17 00:00 IMPRESSION: 1. No pulmonary embolus identified. 2. No acute abnormality in the abdomen identified to explain patient's symptoms identified. 3. Hepatic steatosis. This exam was performed according to our departmental dose-optimization program, which includes automated exposure control, adjustment of the mA and/or kV according to patient size and/or use of iterative reconstruction technique. Head CT 11/02/17 00:00 IMPRESSION: 1. No acute intracranial abnormality identified. This exam was performed according to our departmental dose-optimization program, which includes automated exposure control, adjustment of the mA and/or kV according to patient size and/or use of iterative reconstruction technique. Qualifiers - * PATEINT BEING DISCHARGED WITH ANY OF THE FOLLOWING DIAGNOSIS?: No Plan Time Spent: Greater than 30 Minutes - Patient is being discharged on several new medications. Advised patient to give patients time to work. Patient advised to take her Lomotil and Bentyl as needed.
--- NOTE | 2017-11-04 20:06 | PDOC PROGRESS REPORT ---
Subjective Progress Note for:: 11/04/17 Subjective:: Patient seems to be doing better with gradual improvement. Pt is denying any chest arm or neck discomfort. Patient denying any PND, orthopnea. Patient denied any sustained palpitations, dizziness, syncope, near syncope. Patient denying any fever chills. Patient denying any other significant discomfort. Patient is maintaining sinus rhythm. Review of systems: Rest review of systems negative. Medications: Medications have been reviewed. Reason For Visit: CHEST PAIN, ABD PAIN, DIARRHEA Physical Exam Vital Signs: Temp Pulse Resp BP Pulse Ox 97.5 F 53 L 16 137/80 H 96 11/04/17 12:05 11/04/17 12:05 11/04/17 12:05 11/04/17 12:05 11/04/17 12:05 Intake & Output 11/03/17 11/04/17 11/05/17 06:59 06:59 06:59 Intake Total 900 3760 Output Total 2 Balance 900 3758 Weight 126.2 kg 129.6 kg 129.6 kg Exam: GENERAL: well-nourished and in no acute distress. Alert and oriented x3 HEAD: Atraumatic, normocephalic. EYES: Pupils equal round and reactive to light, extraocular movements intact, sclera anicteric, conjunctiva are normal. ENT: TMs normal, nares patent, oropharynx clear without exudates. Moist mucous membranes. No oral ulcerations or bleeding gums noted NECK: supple without lymphadenopathy. Trachea is central. No cervical or axillary lymphadenopathy noted. Carotids are 2+, JVD WNL LUNGS: Respiration seems nonlabored, no significant accessory muscle action noted. Breath sounds clear to auscultation bilaterally and equal noted. No wheezes rales or rhonchi noted. No significant dullness noted on percussion. CHEST: Palpation of the chest wall shows no significant chest wall tenderness. No other significant abnormalities noted. HEART: [employer], No PSH, 1/6 DANIEL aortic area, 1/6 brewer systolic murmur mitral area, no rubs, no gallops. ABDOMEN: Soft, no significant tenderness appreciated, normoactive bowel sounds. No guarding, no rebound. No rigidity noted . No masses appreciated. EXTREMITIES: Pedal pulses are 1-2+, no calf tenderness noted. No clubbing or cyanosis.trace pedal edema noted NEUROLOGICAL: Focused neurological exam showed no significant neurologic deficit. Normal speech, no focal weakness appreciated. PSYCH: Normal mood, normal affect. Judgment and insight within normal limits. SKIN: No significant ecchymosis, skin is noted to be warm. MUSCULOSKELETAL EXAM: No significant acute joint swelling noted. Results Laboratory Results: 11/01/17 11/01/17 18:00 23:50 Troponin I < 0.012 < 0.012 EKG Comments: Sinus rhythm with minor nonspecific T-wave changes. Impressions: Chest X-Ray 11/01/17 11:25 IMPRESSION: NO SIGNIFICANT RADIOGRAPHIC FINDING IN THE CHEST. Abdomen Ultrasound 11/01/17 12:23 IMPRESSION: FATTY INFILTRATION OF THE LIVER. Status post cholecystectomy. No other significant intra-abdominal abnormalities were identified. Other findings as noted above Abdomen/Pelvis CT 11/02/17 00:00 IMPRESSION: 1. No pulmonary embolus identified. 2. No acute abnormality in the abdomen identified to explain patient's symptoms identified. 3. Hepatic steatosis. This exam was performed according to our departmental dose-optimization program, which includes automated exposure control, adjustment of the mA and/or kV according to patient size and/or use of iterative reconstruction technique. Chest/Abdomen CTA 11/02/17 00:00 IMPRESSION: 1. No pulmonary embolus identified. 2. No acute abnormality in the abdomen identified to explain patient's symptoms identified. 3. Hepatic steatosis. This exam was performed according to our departmental dose-optimization program, which includes automated exposure control, adjustment of the mA and/or kV according to patient size and/or use of iterative reconstruction technique. Head CT 11/02/17 00:00 IMPRESSION: 1. No acute intracranial abnormality identified. This exam was performed according to our departmental dose-optimization program, which includes automated exposure control, adjustment of the mA and/or kV according to patient size and/or use of iterative reconstruction technique. Assessment & Plan - Diagnosis (1) Chest pain Qualifiers: Chest pain type: unspecified Qualified Code(s): R07.9 - Chest pain, unspecified Is this a current diagnosis for this admission?: Yes (2) Hyperlipidemia Is this a current diagnosis for this admission?: Yes (3) Hypertension Qualifiers: Hypertension type: essential hypertension Qualified Code(s): I10 - Essential (primary) hypertension Is this a current diagnosis for this admission?: Yes (4) GERD (gastroesophageal reflux disease) Qualifiers: Esophagitis presence: esophagitis presence not specified Qualified Code(s) : K21.9 - Gastro-esophageal reflux disease without esophagitis Is this a current diagnosis for this admission?: Yes (5) Hiatal hernia Is this a current diagnosis for this admission?: Yes (6) RENUKA (obstructive sleep apnea) Is this a current diagnosis for this admission?: Yes - Notes Notes: Patient had no recurrence of chest pain since proton pump inhibitor dose was increased. Nuclear stress test results and 2D echo results were again reviewed with the patient. Patient was informed about risk factor modification and medical management. Patient advised proper treatment of gastroesophageal reflux disease and also obstructive sleep apnea. As regards hypertension and hyperlipidemia and these are being well managed. Patient offered follow-up for cardiovascular related problems.. - Time Time with patient: 15-25 minutes - CODE STATUS was discussed, patient remains full code. Surrogate decision-maker unchanged. Multiple medical problems were addressed. More than 50% of the time spent coordinating care, discussing management plans with involved caregivers. Management plans discussed with involved personnels. Medical decision making was of moderate to high complexity , patient's has multiple comorbidities. Medications reviewed and adjusted accordingly: Yes
== END 2017-11-04 13:43 | disposition home or self-care (01) | DRG 392 ==
LOC: ER 10:41 → OBSVTOIN 16:07 → EH 16:07 → 5 11-02 12:57
PROVIDERS: ADMIT Emergency Medicine; ATTEND Emergency Medicine
DX: K21.9 Gastro-esophageal reflux disease without esophagitis (principal); Z68.42 Body mass index [BMI] 45.0-49.9, adult; I50.30 Unspecified diastolic (congestive) heart failure; R07.9 Chest pain, unspecified; I11.0 Hypertensive heart disease with heart failure; K76.0 Fatty (change of) liver, not elsewhere classified; G47.33 Obstructive sleep apnea (adult) (pediatric); R51 Headache; K58.9 Irritable bowel syndrome, unspecified; E11.9 Type 2 diabetes mellitus without complications; E66.9 Obesity, unspecified; E03.9 Hypothyroidism, unspecified; I25.10 Atherosclerotic heart disease of native coronary artery without angina pectoris; K44.9 Diaphragmatic hernia without obstruction or gangrene; Z90.49 Acquired absence of other specified parts of digestive tract; Z88.2 Allergy status to sulfonamides; Z88.3 Allergy status to other anti-infective agents
CPT/HCPCS: 36415; 70450; 71046; 71275; 74177; 76705; 78452; 80053; 80061; 83036; 83690; 84439; 84443; 84484; 85025; 87015; 87177; 87207; 87493; 90686; 93005; 93010; 93017; 93306; 96374; 96376; 99285; A9270-GY; A9500; G0378; J0280; J2785; J3010; J3490; J7120; Q9969

== ENCOUNTER 2018-03-12 15:22 | Emergency (ER) | payer SELFPAY ==
[2018-03-12] MEDS ORDERED: METOCLOPRAMIDE HCL 10 MG TABLET PO ONE (16:40)
[2018-03-12] MEDS ORDERED: DIPHENHYDRAMINE HCL 50 MG CAPSULE PO ONE (16:41)
[2018-03-12] MEDS ORDERED: ASPIRIN 81 MG TABLET, CHEWABLE PO ONE (16:41)
--- NOTE | 2018-03-12 17:25 | RADIOLOGY REPORT (SQ) ---
EXAM DESCRIPTION: CHEST 2 VIEWS COMPLETED DATE/TIME: 03/12/2018 5:15 pm REASON FOR STUDY: chest pain COMPARISON: 11/01/2017 EXAM PARAMETERS: NUMBER OF VIEWS: two views TECHNIQUE: Digital Frontal and Lateral radiographic views of the chest acquired. RADIATION DOSE: NA LIMITATIONS: none FINDINGS: LUNGS AND PLEURA: No acute opacities, masses or pneumothorax. No pleural effusion. MEDIASTINUM AND HILAR STRUCTURES: No masses or contour abnormalities. HEART AND VASCULAR STRUCTURES: Heart normal size. No evidence for failure. BONES: No acute findings. HARDWARE: None in the chest. OTHER: No other significant finding. IMPRESSION: NO ACUTE RADIOGRAPHIC FINDING IN THE CHEST. TECHNICAL DOCUMENTATION: JOB ID: [id number] [place]-72 2010 [employer]- All Rights Reserved Reading location - IP/workstation name: [email or web address]
[2018-03-12 17:57] LABS: TROPONIN I < 0.012 ng/mL
[2018-03-12] MEDS ORDERED: NAPROXEN 250 MG TABLET PO ONE (18:40)
[2018-03-12] MEDS ORDERED: LIDOCAINE 5% (700 MG) TRANSDERMAL ADH..PATCH TP ONE (18:40)
--- NOTE | 2018-03-12 18:44 | ER Document Report ---
ED General - General Chief Complaint: Chest Pain Stated Complaint: CHEST PAIN ,TROUBLE BREATHING Time Seen by Provider: 03/12/18 16:38 Notes: Patient is a 52-year-old female who presents with 4 months of chest pain. She describes this pain as being to the anterior central aspect of her chest and reports noted swelling to the area. She states that area has become progressively more swollen since onset of her pain and intermittently becomes red. She states that the pain as a stabbing, aching, constant pain worsened by moving, coughing or taking a deep breath. She also notes that pushing on the area worsens the pain. She was hospitalized in October for similar concern, had a normal CTA of the chest and a normal stress test. She has not yet followed up with her general doctor regarding today's concerns. She denies any unilateral leg swelling, vomiting, diaphoresis, or pain in the arms, jaw or back. TRAVEL OUTSIDE OF THE [place] IN LAST 30 DAYS: No - Related Data Allergies/Adverse Reactions: Sulfa (Sulfonamide Antibiotics) Allergy (Severe, Verified 03/12/18 16:35) THROAT SWELLING erythromycin base [Erythromycin Base] Allergy (Intermediate, Verified 03/12/18 16:35) RASH, VOMITING Past Medical History - General Information source: Patient - Social History Smoking Status: Never Smoker Chew tobacco use (# tins/day): No Frequency of alcohol use: None Drug Abuse: None Lives with: Alone Family History: Hypertension Patient has suicidal ideation: No Patient has homicidal ideation: No - Past Medical History Cardiac Medical History: Reports: Hx Coronary Artery Disease - HIGH CHOLESTEROL , Hx Hypercholesterolemia, Hx Hypertension Denies: Hx Heart Attack Pulmonary Medical History: Reports: Hx Sleep Apnea Denies: Hx Asthma, Hx Bronchitis, Hx COPD, Hx Pneumonia Neurological Medical History: Denies: Hx Cerebrovascular Accident, Hx Seizures Endocrine Medical History: Reports: Hx Hypothyroidism Renal/ Medical History: Denies: Hx Kidney Stones, Hx Peritoneal Dialysis GI Medical History: Reports: Hx Gastroesophageal Reflux Disease - Severe, Hx Hiatal Hernia - Sliding Musculoskeletal Medical History: Denies Hx Arthritis Past Surgical History: Reports: Hx Abdominal Surgery - hernia repairs x3, Hx Adenoidectomy, Hx Appendectomy - 2016, Hx Cholecystectomy, Hx Gynecologic Surgery - ectopic. Denies: Hx Hysterectomy - Immunizations Hx Diphtheria, Pertussis, Tetanus Vaccination: Yes - SEP 2012 Review of Systems - Review of Systems Notes: Constitutional: Negative for fever. HENT: Negative for sore throat. Eyes: Negative for visual changes. Cardiovascular: Positive for chest pain. Respiratory: Negative for shortness of breath. Gastrointestinal: Negative for abdominal pain, vomiting or diarrhea. Genitourinary: Negative for dysuria. Musculoskeletal: Negative for back pain. Skin: Negative for rash. Neurological: Negative for headaches, weakness or numbness. 10 point ROS negative except as marked above and in HPI. Physical Exam - Vital signs Vitals: Temp Pulse Resp BP Pulse Ox 97.6 F 87 16 181/102 H 96 03/12/18 15:55 03/12/18 15:55 03/12/18 15:55 03/12/18 15:55 03/12/18 15:55 Interpretation: Hypertensive Notes: PHYSICAL EXAMINATION: GENERAL: Well-appearing, well-nourished and in no acute distress. HEAD: Atraumatic, normocephalic. EYES: Pupils equal round and reactive to light, extraocular movements intact, sclera anicteric, conjunctiva are normal. ENT: nares patent, oropharynx clear without exudates. Moist mucous membranes. NECK: Normal range of motion, supple without lymphadenopathy LUNGS: Breath sounds clear to auscultation bilaterally and equal. No wheezes rales or rhonchi. HEART: Regular rate and rhythm without murmurs ABDOMEN: Soft, nontender, normoactive bowel sounds. No guarding, no rebound. No masses appreciated. EXTREMITIES: Normal range of motion, no pitting or edema. No cyanosis. NEUROLOGICAL: No focal neurological deficits. Moves all extremities spontaneously and on command. PSYCH: Normal mood, normal affect. SKIN: Warm, Dry, normal turgor, mild area of swelling without any appreciable fluid collection to the central anterior sternum Course - Re-evaluation Re-evalutation: 03/12/18 18:40 Presentation of chest pain in an otherwise well appearing patient. Low clinical suspicion for ACS given clinical history, exam, EKG without ST elevations or depressions, and negative initial troponin. HEART score less than or equal to 3. Patient had a normal stress test 4 months ago. PE also seems unlikely given clinical history, absence of tachycardia or dyspnea. Wells score is 0 CXR without evidence of pneumothorax or pneumonia. No widened mediastinum. Aortic dissection also seems unlikely given history, symmetric pulses, CXR, and vitals. Patient does have what appears to be some soft tissue swelling, possible cystic structure overlying the anterior sternum which is where she complains that her pain has been located over the past 3 months and that the area intermittently becomes red and appears to be inflamed. No additional areas of swelling or lymphadenopathy. I have recommended that the patient follow-up with her primary doctor and consider an ultrasound to the area as well as a dermatologic consultation as this appears to be most probably a cyst. Will also start on a course of naproxen and apply topical lidocaine to the affected area. At this time will discharge with return precautions and follow- up recommendations. Verbal discharge instructions given a the bedside and opportunity for questions given. Medication warnings reviewed. Patient is in agreement with this plan and has verbalized understanding of return precautions and the need for primary care follow-up in the next 24-72 hours. - Vital Signs Vital signs: Temp Pulse Resp BP Pulse Ox 97.6 F 87 19 143/94 H 96 03/12/18 15:55 03/12/18 15:55 03/12/18 19:29 03/12/18 19:29 03/12/18 19:29 - Diagnostic Test Radiology reviewed: Image reviewed, Reports reviewed Radiology results interpreted by me: 03/12/18 18:42 Chest x-ray: No acute infiltrate or pneumothorax - EKG Interpretation by Me Additional EKG results interpreted by me: 03/12/18 18:42 Sinus rhythm. Rate 69. No ST elevations or depressions. QTC is 433. Discharge - Discharge Clinical Impression: Localized swelling of chest wall, Chest discomfort Condition: Good Disposition: HOME, SELF-CARE Additional Instructions: Please follow-up closely with your primary care physician and consider further evaluation in the apparent cystic structure in your chest wall. A dermatology consult would be appropriate. Take the naproxen that has been prescribed for the next 1 week to try to decrease some of the inflammation to this area. Return if you have worsening of your pain, have difficulty breathing, develop a fever of greater than 100.4F, progressively worsening swelling the area, or have any other symptoms that are worrisome to you. Prescriptions: Naproxen 500 mg PO BID #14 tablet Referrals: LULU CARLOS MD [Primary Care Provider] - Follow up as needed
[2018-03-12 19:55] VITALS: BP 143/94
--- NOTE | 2018-03-13 00:54 | EKG REPORT ---
SEVERITY:- ABNORMAL ECG - ACCELERATED JUNCTIONAL ESCAPE RHYTHM : Confirmed by: Oriana Roca MD 13-Mar-2018 00:53:43
== END 2018-03-12 19:55 | disposition home or self-care (01) ==
LOC: ER 15:22
DX: R22.2 Localized swelling, mass and lump, trunk (principal); R07.9 Chest pain, unspecified; R05 Cough; I25.10 Atherosclerotic heart disease of native coronary artery without angina pectoris; I10 Essential (primary) hypertension
CPT/HCPCS: 36415; 71046; 82550; 82553; 84484; 93005; 93010; 99285

== ENCOUNTER 2018-04-20 14:16 | Emergency (ER) | payer SELFPAY ==
[2018-04-20] MEDS ORDERED: ONDANSETRON HCL INJ/PF 4 MG/2 ML SDV IV ONE (14:51)
[2018-04-20] MEDS ORDERED: KETOROLAC TROMETHAMINE INJ/PF 30 MG/1 ML SDV IV ONE (14:51)
[2018-04-20] MEDS ORDERED: NORMAL SALINE 1000 ML 1,000 ML IV ONE (14:52)
--- NOTE | 2018-04-20 14:53 | ER Document Report ---
ED General - General Chief Complaint: Flank Pain Stated Complaint: BACK PAIN, NAUSEA Time Seen by Provider: 04/20/18 14:40 TRAVEL OUTSIDE OF THE [place] IN LAST 30 DAYS: No - HPI Notes: Right flank pain with increased urination and nausea 3 weeks - Related Data Allergies/Adverse Reactions: Sulfa (Sulfonamide Antibiotics) Allergy (Severe, Verified 04/20/18 14:23) THROAT SWELLING erythromycin base [Erythromycin Base] Allergy (Intermediate, Verified 04/20/18 14:23) RASH, VOMITING metoclopramide [From Reglan] Allergy (Verified 04/20/18 14:23) Past Medical History - Social History Smoking Status: Never Smoker Chew tobacco use (# tins/day): No Frequency of alcohol use: Occasional Drug Abuse: None Family History: Hypertension Patient has suicidal ideation: No Patient has homicidal ideation: No - Past Medical History Cardiac Medical History: Reports: Hx Coronary Artery Disease - HIGH CHOLESTEROL , Hx Hypercholesterolemia, Hx Hypertension Denies: Hx Heart Attack Pulmonary Medical History: Reports: Hx Sleep Apnea Denies: Hx Asthma, Hx Bronchitis, Hx COPD, Hx Pneumonia Neurological Medical History: Denies: Hx Cerebrovascular Accident, Hx Seizures Endocrine Medical History: Reports: Hx Hypothyroidism Renal/ Medical History: Denies: Hx Kidney Stones, Hx Peritoneal Dialysis GI Medical History: Reports: Hx Gastroesophageal Reflux Disease - Severe, Hx Hiatal Hernia - Sliding Musculoskeletal Medical History: Denies Hx Arthritis Past Surgical History: Reports: Hx Abdominal Surgery - hernia repairs x3, Hx Adenoidectomy, Hx Appendectomy - 2016, Hx Cholecystectomy, Hx Gynecologic Surgery - ectopic, Hx Thyroid Surgery - thyroidectomy, parathyroid. Denies: Hx Hysterectomy - Immunizations Hx Diphtheria, Pertussis, Tetanus Vaccination: Yes - SEP 2012 Review of Systems - Review of Systems Gastrointestinal: Nausea Genitourinary: Frequency, Flank pain, Urgency Physical Exam - Respiratory Respiratory status: No respiratory distress Chest status: Nontender Breath sounds: Normal Chest palpation: Normal - Cardiovascular Rhythm: Regular Heart sounds: Normal auscultation Discharge - Discharge Referrals: LULU CARLOS MD [Primary Care Provider] - Follow up as needed
[2018-04-20 15:34] LABS: ABSOLUTE EOSINOPHILS # (AUTO) 0.2 10^3/uL (0.0-0.6); ABSOLUTE LYMPHOCYTES (AUTO) 1.3 10^3/uL (0.5-4.7); ABSOLUTE MONOCYTES (AUTO) 0.6 10^3/uL (0.1-1.4); ABSOLUTE NEUT (AUTO) 4.5 10^3/uL (1.7-8.2); BASOPHILS % (AUTO) 0.5 % (0-2); EOSINOPHILS % (AUTO) 2.9 % (0-6); HEMATOCRIT 46.6 % (36.0-47.0); LYMPHOCYTES % (AUTO) 19.8 % (13-45); MEAN CORPUSCULAR HGB CONC 34.3 g/dL (32.0-36.0); MEAN CORPUSCULAR VOLUME 93 fl (80-97); MONOCYTES % (AUTO) 8.6 % (3-13); PLATELET COUNT 221 10^3/uL (150-450); RED CELL DISTRIBUTION WIDTH 13.9 % (11.5-14.0); SEGMENTED NEUTROPHILS % (AUTO) 68.2 % (42-78); TOTAL CELLS COUNTED % (AUTO) 100 %; WHITE BLOOD COUNT 6.6 10^3/uL (4.0-10.5)
[2018-04-20 15:40] LABS: APPEARANCE,URINE SLIGHTLY-CLOUDY; BILIRUBIN,URINE NEGATIVE (NEGATIVE); COLOR,URINE YELLOW; GLUCOSE, URINE NEGATIVE (NEGATIVE); KETONES,URINE NEGATIVE (NEGATIVE); LEUKOCYTE ESTERASE,URINE NEGATIVE (NEGATIVE); NITRITE,URINE NEGATIVE (NEGATIVE); PROTEIN,URINE 30 mg/dL (NEGATIVE); URINE SPECIFIC GRAVITY 1.026; UROBILINOGEN,URINE NEGATIVE mg/dL (<2.0)
[2018-04-20 15:56] LABS: ALANINE AMINOTRANSFERASE 128 U/L (9-52); ALBUMIN 4.6 g/dL (3.5-5.0); ALKALINE PHOSPHATASE 96 U/L (38-126); ANION GAP 17 (5-19); ASPARTATE AMINO TRANSFERASE 92 U/L (14-36); BILIRUBIN,DIRECT 0.3 mg/dL (0.0-0.4); BILIRUBIN,TOTAL 0.7 mg/dL (0.2-1.3); BLOOD UREA NITROGEN 12 mg/dL (7-20); CALCIUM 9.9 mg/dL (8.4-10.2); CARBON DIOXIDE 26 mmol/L (22-30); CHLORIDE 99 mmol/L (98-107); GLUCOSE 129 mg/dL (75-110); POTASSIUM 4.4 mmol/L (3.6-5.0); SODIUM 141.6 mmol/L (137-145); TOTAL PROTEIN 8.4 g/dL (6.3-8.2)
--- NOTE | 2018-04-20 16:08 | RADIOLOGY REPORT (SQ) ---
EXAM DESCRIPTION: CT LTD RENAL STONE PROTOCOL ON COMPLETED DATE/TIME: 04/20/2018 3:53 pm REASON FOR STUDY: right flank pain COMPARISON: None. TECHNIQUE: CT scan of the abdomen and pelvis performed without intravenous or oral contrast. Images reviewed with lung, soft tissue, and bone windows. Reconstructed coronal and sagittal MPR images revi ewed. All images stored on PACS. All CT scanners at this facility use dose modulation, iterative reconstruction, and/or weight based d osing when appropriate to reduce radiation dose to as low as reasonably achievable (ALARA). [facility]: Dose Right [facility]: CareDose [facility]: Dose Right [facility]: Teradose 4D [facility]: Shout TV RADIATION DOSE: mGy. LIMITATIONS: None. FINDINGS: LOWER CHEST: Hiatal hernia. NON-CONTRASTED LIVER, SPLEEN, ADRENALS: Evaluation limited by lack of IV contrast. No identified sign ificant masses. PANCREAS: No masses. No peripancreatic inflammatory changes. GALLBLADDER: Surgically absent. RIGHT KIDNEY AND URETER: No suspicious masses. Assessment limited by lack of IV contrast. No signif icant calcifications. No hydronephrosis or hydroureter. LEFT KIDNEY AND URETER: No suspicious masses. Assessment limited by lack of IV contrast. No signifi cant calcifications. No hydronephrosis or hydroureter. AORTA AND RETROPERITONEUM: No aneurysm. No retroperitoneal masses or adenopathy. BOWEL AND PERITONEAL CAVITY: Sigmoid diverticulosis. No obvious masses or inflammatory changes. No f ree fluid. APPENDIX: Surgically absent. PELVIS, BLADDER, AND ABDOMINAL WALL:Anterior abdominal wall hernia containing fat. BONES: No significant findings. OTHER: No other significant finding. IMPRESSION: No acute findings. COMMENT: Quality ID # [id number]: Final reports with documentation of one or more dose reduction techniques (e.g., Automated exposure control, adjustment of the mA and/or kV according to patient size, use of iterative reconstruction technique) TECHNICAL DOCUMENTATION: JOB ID: [id number] [employer]- All Rights Reserved Reading location - IP/workstation name: [email or web address]
[2018-04-20] MEDS ORDERED: PROMETHAZINE HCL 25 MG TABLET PO ONE (16:45)
--- NOTE | 2018-04-20 17:06 | ER Document Report ---
ED GI/ - General Chief Complaint: Flank Pain Stated Complaint: BACK PAIN, NAUSEA Time Seen by Provider: 04/20/18 14:40 Mode of Arrival: Ambulatory Information source: Patient Notes: 52-year-old female presents to ED for complaint of right flank pain increased urination and nausea for 3 weeks.. Patient was seen in the pit area blood and urine and CAT scan were completed. Her liver enzymes were elevated otherwise test were negative. Will send for upper abdominal ultrasound to ensure the liver is fine and then discharge patient. Patient is already been treated with nausea medicine and IV fluids. She will be treated with Phenergan when she returns after sound. TRAVEL OUTSIDE OF THE [place] IN LAST 30 DAYS: No - HPI Patient complains to provider of: Flank pain, Other - Nausea Onset: Other - 3 weeks Timing/Duration: Persistent Quality of pain: Sharp Severity at maximum: Severe Severity in ED: Severe Pain Level: 5 Location: Right flank Vaginal bleeding (Compared to normal period): None Associated symptoms: Urinary frequency, Other - Right flank pain Exacerbated by: Denies Relieved by: Denies Similar symptoms previously: Yes Recently seen / treated by doctor: No - Related Data Allergies/Adverse Reactions: Sulfa (Sulfonamide Antibiotics) Allergy (Severe, Verified 04/20/18 14:23) THROAT SWELLING erythromycin base [Erythromycin Base] Allergy (Intermediate, Verified 04/20/18 14:23) RASH, VOMITING metoclopramide [From Reglan] Allergy (Verified 04/20/18 14:23) Past Medical History - General Information source: Patient - Social History Smoking Status: Never Smoker Cigarette use (# per day): No Chew tobacco use (# tins/day): No Smoking Education Provided: No Frequency of alcohol use: Social Drug Abuse: None Lives with: Family Family History: Hypertension Patient has suicidal ideation: No Patient has homicidal ideation: No - Past Medical History Cardiac Medical History: Reports: Hx Coronary Artery Disease - HIGH CHOLESTEROL , Hx Hypercholesterolemia, Hx Hypertension Pulmonary Medical History: Reports: Hx Asthma, Hx Sleep Apnea EENT Medical History: Reports: None Neurological Medical History: Reports: None Endocrine Medical History: Reports: Hx Hypothyroidism, Other - Thyroid cancer Renal/ Medical History: Reports: Hx Ectopic , Hx Ovarian Cysts Malignancy Medical History: Reports: Other - Thyroid cancer GI Medical History: Reports: Hx Gastroesophageal Reflux Disease - Severe, Hx Hiatal Hernia - Sliding Musculoskeletal Medical History: Reports Hx Arthritis, Reports Hx Musculoskeletal Deformity, Reports Hx Musculoskeletal Trauma Skin Medical History: Reports None, Reports Other - Both to the center of upper chest where parathyroid was placed Psychiatric Medical History: Reports: None Traumatic Medical History: Reports: Hx Fractures - Right shoulder Infectious Medical History: Reports: None Past Surgical History: Reports: Hx Abdominal Surgery - hernia repairs x3, Ailyn fundoplication, Hx Adenoidectomy, Hx Appendectomy - 2016, Hx Cholecystectomy, Hx Gynecologic Surgery - ectopic, Hx Orthopedic Surgery - Kneecap reconstruction, Hx Thyroid Surgery - thyroidectomy, parathyroidectmy with a parathyroid replaced. Denies: Hx Hysterectomy - Immunizations Hx Diphtheria, Pertussis, Tetanus Vaccination: Yes - SEP 2012 Review of Systems - Review of Systems Constitutional: No symptoms reported EENT: No symptoms reported Cardiovascular: No symptoms reported Respiratory: No symptoms reported Gastrointestinal: Nausea Genitourinary: Flank pain Female Genitourinary: No symptoms reported Musculoskeletal: No symptoms reported Skin: No symptoms reported Hematologic/Lymphatic: No symptoms reported Neurological/Psychological: No symptoms reported -: Yes All other systems reviewed and negative Physical Exam - Vital signs Vitals: Temp Pulse Resp BP Pulse Ox 97.5 F 97 20 190/110 H 96 04/20/18 14:24 04/20/18 14:24 04/20/18 14:24 04/20/18 14:24 04/20/18 14:24 Interpretation: Normal - General General appearance: Appears well, Alert - HEENT Head: Normocephalic, Atraumatic Eyes: Normal Pupils: PERRL - Respiratory Respiratory status: No respiratory distress Chest status: Nontender Breath sounds: Normal Chest palpation: Normal - Cardiovascular Rhythm: Regular Heart sounds: Normal auscultation Murmur: No - Abdominal Inspection: Normal Distension: No distension Bowel sounds: Normal Tenderness: Nontender Organomegaly: No organomegaly - Back Back: Normal, Tender - Right, CVA tenderness - Extremities General upper extremity: Normal inspection, Nontender, Normal color, Normal ROM , Normal temperature General lower extremity: Normal inspection, Nontender, Normal color, Normal ROM , Normal temperature, Normal weight bearing. No: Shannon's sign - Neurological Neuro grossly intact: Yes Cognition: Normal Orientation: AAOx4 Damian Coma Scale Eye Opening: Spontaneous [place] Coma Scale Verbal: Oriented Damian Coma Scale Motor: Obeys Commands Damian Coma Scale Total: 15 Speech: Normal Motor strength normal: LUE, RUE, LLE, RLE Sensory: Normal - Psychological Associated symptoms: Normal affect, Normal mood - Skin Skin Temperature: Warm Skin Moisture: Dry Skin Color: Normal Course - Re-evaluation Re-evalutation: 04/21/18 02:[address] and ultrasound all discussed with patient. Written reports of labs CT and ultrasound given the patient to follow-up with her primary doctor. Patient was medicated for her nausea vomiting and given IV fluids. She was discharged home to follow-up with her primary doctor. Patient was discharged home with muscle relaxer prescription as well as Phenergan prescription. - Vital Signs Vital signs: Temp Pulse Resp BP Pulse Ox 97.6 F 80 17 148/100 H 96 04/20/18 19:12 04/20/18 19:12 04/20/18 19:12 04/20/18 19:12 04/20/18 19:12 - Laboratory Result Diagrams: 04/20/18 15:09 04/20/18 15:09 Laboratory results interpreted by me: 04/20/18 04/20/18 04/20/18 15:09 15:09 15:09 Hgb 16.0 H Glucose 129 H AST 92 H ALT 128 H Total Protein 8.4 H Urine Protein 30 H - Diagnostic Test Radiology reviewed: Image reviewed, Reports reviewed Discharge - Discharge Clinical Impression: Flank pain, Muscle strain Condition: Stable Disposition: HOME, SELF-CARE Additional Instructions: Flank Pain We weren't able to prove an exact cause for your flank pain. Pain in the flank can be caused by a muscle strain or spasm. Sometimes a kidney stone causes pain, but can't be found on our tests. Infection in the kidney should be evident on a urine test. Early shingles can occasionally cause flank pain, without the rash that proves the diagnosis. On rare occasions, disease of the pancreas, aorta, spleen, or colon can create pain in the flank. At this time, there's no evidence of a dangerous condition, and it seems safe for you to be at home. If the pain goes away and does not come back, no further testing will be needed. If pain persists, or becomes more severe, we may need to repeat some tests or order additional new testing. Blood in the urine, urgency to urinate frequently, and pain that radiates to the groin can indicate a kidney stone. Fever may mean that the pain is due to infection, either of the kidney or the colon (diverticulitis). If your pain is early shingles, you should develop an eruption of blisters in the painful area within a few days. Call the doctor or return if you have pain that is spreading or becoming more severe, pain that does not resolve with time, fever, or any other new symptoms. Myalagia (Muscle Pain) Myalgia is pain in the muscles. We use the word myalgia to describe muscle pain where there's no history of injury, no known muscle disease, and the muscles are normal to examination. Myalgias can be a symptom of an acute illness , such as influenza, hepatitis, or any viral illness, especially with fever. Sometimes the muscle pain comes before any other symptoms. Myalgia can also be an early symptom of inflammatory muscle disease, such as lupus. If myalgia is accompanied by an acute illness that explains the muscle pain , then no further testing needs to be done. When there's no clear reason for the pain, tests may be done to see if there's an inflammatory or other disease of the muscles. The usual treatment for myalgias is anti-inflammatory medication, such as ibuprofen. Muscle aches may be soothed with a heating pad or hot compress. If muscles remain painful for more than a few days, you'll need testing and followup. Return if a muscle becomes swollen, red, or severely painful. VOMITING: Vomiting (or nausea without vomiting) can be caused by many other different problems. It can mean that something's wrong with the stomach, such as ulcers or inflammation or the intestinal tract, such as appendicitis. But it can also be a symptom of a problem that has nothing to do with the stomach or intestines. Vomiting is common with severe headaches, earaches, tonsillitis, and kidney infections, etc. We see it with pneumonia or heart attacks. Drugs can cause nausea and vomiting. Many abdominal problems cause vomiting; for example, gallstones, kidney stones, pancreatitis, and intestinal obstruction ( blocked bowels). In most cases, curing the vomiting depends on fixing the problem that caused it. For temporary relief, we may use an anti-nausea medicine. For home use, we can prescribe suppositories, chewable pills, pills that dissolve in the mouth, or liquid anti-nausea drugs. If the vomiting seems to be caused by a problem in the stomach, acid-suppressing drugs may be prescribed as well. It's important to avoid dehydration. Sip small amounts of clear liquids ( soft drinks, tea, broth, etc) . Try to take fluids frequently even if you are vomiting to prevent dehydration. Take increasing amounts of fluid and when liquids are being consumed successfully, advance to small amounts of bland food (toast, soups, mashed potatoes, etc.) until you are able to resume a regular diet. Avoid aspirin, tobacco, and alcohol. If the vomiting worsens, if the problem that's making you vomit worsens, or if there's evidence of bleeding in the stomach (such as black, tarry stool, or bloody or black vomit), you should return immediately. Also, return if abdominal pain worsens or becomes localized to one area or you develop high fever. Call your doctor if you aren't improved in 24 hours. INTRAVENOUS (I V) FLUIDS: As part of your care today, you received intravenous (IV) fluids. IV fluids are administered to patients who are dehydrated or to those who have certain chemical (electrolyte) abnormalities that need correcting. ANTINAUSEA MEDICATION: You have been given a medication to suppress nausea and vomiting. This type of medication can be given as a shot, pill, or suppository. It will usually last for many hours. Pills and shots usually last six to eight hours. For the typical illness, only one or two doses of the medication may be necessary. Mild lightheadedness may occur. This type of medicine can cause drowsiness. Do not drive or operate dangerous machinery while under its influence. Do not mix with alcohol. See your doctor at once if you have muscle spasms or tightness, or uncontrollable motions (particularly of the neck, mouth, or jaw). Persistent vomiting or severe lightheadedness should also be evaluated by the physician. Muscle Relaxers Muscle relaxing medications are usually prescribed for acute muscle spasm or injury to the neck and back. They are often combined with antiinflammatory pain medication for increased relief. You may stop the muscle relaxer when the pain and stiffness have improved. Start the medication again if spasms recur. Muscle relaxers may cause drowsiness, especially with the first dose. Do not operate machinery or drive while under the effects of the medication. Most muscle relaxers last up to 24 hours. Do not combine the medication with alcohol. FOLLOW-UP CARE: If you have been referred to a physician for follow-up care, call the physician s office for an appointment as you were instructed or within the next two days. If you experience worsening or a significant change in your symptoms, notify the physician immediately or return to the Emergency Department at any time for re-evaluation. Prescriptions: Cyclobenzaprine HCl [Flexeril 10 mg Tablet] 10 mg PO TIDP PRN #15 tab PRN Reason: Promethazine HCl [Phenergan 25 mg Tablet] 25 mg PO Q6H PRN #15 tablet PRN Reason: Forms: Elevated Blood Pressure Referrals: LULU CARLOS MD [Primary Care Provider] - Follow up as needed
--- NOTE | 2018-04-20 17:46 | RADIOLOGY REPORT (SQ) ---
EXAM DESCRIPTION: U/S ABDOMEN LIMITED W/O DOP COMPLETED DATE/TIME: 04/20/2018 5:37 pm REASON FOR STUDY: elevated liver enzymes COMPARISON: 11/01/2017 TECHNIQUE: Dynamic and static grayscale images acquired of the abdomen and recorded on PACS. Additio nal selected color Doppler and spectral images recorded. LIMITATIONS: None. FINDINGS: PANCREAS: Poorly seen. LIVER: No masses. Echotexture normal. LIVER VASCULATURE: Increased echogenicity. No masses. GALLBLADDER: Surgically absent. ULTRASOUND-DETECTED BURNS'S SIGN: Not applicable. INTRAHEPATIC DUCTS AND COMMON DUCT: CBD and intrahepatic ducts normal caliber. No filling defects. INFERIOR VENA CAVA: Not imaged. AORTA: No aneurysm. The distal aorta was poorly seen. RIGHT KIDNEY: Normal size. Normal echogenicity. No solid or suspicious masses. No hydronephrosis. No calcifications. PERITONEAL AND RIGHT PLEURAL SPACE: No ascites or effusions. OTHER: No other significant findings. IMPRESSION: Fatty infiltration of the liver. TECHNICAL DOCUMENTATION: JOB ID: [id number] [employer]- All Rights Reserved Reading location - IP/workstation name: [email or web address]
[2018-04-20 19:13] VITALS: BP 148/100
== END 2018-04-20 19:13 | disposition home or self-care (01) ==
LOC: ER 14:16
DX: R10.9 Unspecified abdominal pain (principal); T14.8XXA Other injury of unspecified body region, initial encounter; X58.XXXA Exposure to other specified factors, initial encounter; R11.2 Nausea with vomiting, unspecified; R35.0 Frequency of micturition; R74.8 Abnormal levels of other serum enzymes; R31.9 Hematuria, unspecified; I25.10 Atherosclerotic heart disease of native coronary artery without angina pectoris; I10 Essential (primary) hypertension; J45.909 Unspecified asthma, uncomplicated; Z85.850 Personal history of malignant neoplasm of thyroid; Z87.19 Personal history of other diseases of the digestive system; Z88.2 Allergy status to sulfonamides; Z88.1 Allergy status to other antibiotic agents
CPT/HCPCS: 99284; 96361; 96374; 96375; 36415; 85025; 80053; 81001; 76705; 76380; J1885; J2405; J7030

== ENCOUNTER → 2018-09-27 | Outpatient (CLI) | payer OTHER ==
[2018-09-27 14:11] LABS: ABSOLUTE EOSINOPHILS # (AUTO) 0.1 10^3/uL (0.0-0.6); ABSOLUTE LYMPHOCYTES (AUTO) 1.2 10^3/uL (0.5-4.7); ABSOLUTE MONOCYTES (AUTO) 0.4 10^3/uL (0.1-1.4); ABSOLUTE NEUT (AUTO) 3.3 10^3/uL (1.7-8.2); BASOPHILS % (AUTO) 0.8 % (0-2); EOSINOPHILS % (AUTO) 2.3 % (0-6); HEMATOCRIT 42.7 % (36.0-47.0); HEMOGLOBIN 14.6 g/dL (12.0-15.5); LYMPHOCYTES % (AUTO) 24.1 % (13-45); MEAN CORPUSCULAR HEMOGLOBIN 31.3 pg (27.0-33.4); MEAN CORPUSCULAR HGB CONC 34.1 g/dL (32.0-36.0); MEAN CORPUSCULAR VOLUME 92 fl (80-97); PLATELET COUNT 203 10^3/uL (150-450); RED BLOOD COUNT 4.65 10^6/uL (3.72-5.28); RED CELL DISTRIBUTION WIDTH 13.4 % (11.5-14.0); SEGMENTED NEUTROPHILS % (AUTO) 64.8 % (42-78); TOTAL CELLS COUNTED % (AUTO) 100 %; WHITE BLOOD COUNT 5.1 10^3/uL (4.0-10.5)
[2018-09-27 14:32] LABS: ALANINE AMINOTRANSFERASE 74 U/L (9-52); ALBUMIN 4.6 g/dL (3.5-5.0); ALKALINE PHOSPHATASE 90 U/L (38-126); ANION GAP 9 (5-19); ASPARTATE AMINO TRANSFERASE 67 U/L (14-36); BILIRUBIN,DIRECT 0.2 mg/dL (0.0-0.4); BILIRUBIN,TOTAL 0.5 mg/dL (0.2-1.3); BLOOD UREA NITROGEN 13 mg/dL (7-20); CALCIUM 9.2 mg/dL (8.4-10.2); CARBON DIOXIDE 30 mmol/L (22-30); CHLORIDE 104 mmol/L (98-107); CHOLESTEROL 255.37 mg/dL (0-200); GLUCOSE 111 mg/dL (75-110); POTASSIUM 4.7 mmol/L (3.6-5.0); SODIUM 142.8 mmol/L (137-145); TOTAL PROTEIN 7.7 g/dL (6.3-8.2); TRIGLYCERIDES 161 mg/dL (<150); URIC ACID 6.7 mg/dL (2.5-7.5)
[2018-09-27 14:46] LABS: DIRECT LDL 179 mg/dL (<100)
[2018-09-27 14:49] LABS: FREE T3 4.23 pg/mL (2.77-5.27); FREE T4 (FREE THYROXINE) 1.37 ng/dL (0.78-2.19)
[2018-09-27 14:50] LABS: VLDL CHOLESTEROL 32.2 mg/dL (10-31)
--- NOTE | 2018-09-27 14:52 | RADIOLOGY REPORT (SQ) ---
EXAM DESCRIPTION: CHEST PA/LATERAL COMPLETED DATE/TIME: 09/27/2018 1:46 pm REASON FOR STUDY: PERSISTENT COUGH COMPARISON: 03/12/2018 EXAM PARAMETERS: NUMBER OF VIEWS: two views TECHNIQUE: Digital Frontal and Lateral radiographic views of the chest acquired. RADIATION DOSE: NA LIMITATIONS: none FINDINGS: LUNGS AND PLEURA: No opacities, masses or pneumothorax. No pleural effusion. MEDIASTINUM AND HILAR STRUCTURES: No masses or contour abnormalities. HEART AND VASCULAR STRUCTURES: Heart normal size. No evidence for failure. BONES: No acute findings. HARDWARE: None in the chest. OTHER: No other significant finding. IMPRESSION: NO SIGNIFICANT RADIOGRAPHIC FINDING IN THE CHEST. TECHNICAL DOCUMENTATION: JOB ID: [id number] [email or web address]- All Rights Reserved Reading location - IP/workstation name: [email or web address]
[2018-09-27 15:02] LABS: THYROID STIMULATING HORMONE 0.38 uIU/mL (0.47-4.68)
[2018-09-27 15:10] LABS: ERYTHROCYTE SEDIMENTATION RATE 23 mm/hr (0-30)
== END ==
LOC: OD 13:13
DX: C73 Malignant neoplasm of thyroid gland (principal); I10 Essential (primary) hypertension; R05 Cough
CPT/HCPCS: 36415; 71046; 80053; 80061; 83036; 84439; 84443; 84481; 84550; 85025; 85652

== ENCOUNTER → 2018-11-30 | Outpatient (CLI) | payer OTHER ==
--- NOTE | 2018-11-30 15:55 | RADIOLOGY REPORT (SQ) ---
EXAM DESCRIPTION: STERNUM COMPLETED DATE/TIME: 11/30/2018 3:09 pm REASON FOR STUDY: PRECORDIAL PAIN R07.2 PRECORDIAL PAIN COMPARISON: None. NUMBER OF VIEWS: Two views. TECHNIQUE: Lateral and AP and/or oblique views of the sternum. LIMITATIONS: Limited examination due to patient positioning. FINDINGS: There is no acute or significant bone, joint or soft tissue abnormality. OTHER: No other significant finding. IMPRESSION: 1. Limited examination as above. 2. No acute osseous findings on the obtained study. TECHNICAL DOCUMENTATION: JOB ID: [id number] [email or web address]- All Rights Reserved Reading location - IP/workstation name: [email or web address]
== END ==
LOC: OD 14:51
DX: R07.2 Precordial pain (principal)
CPT/HCPCS: 71120

== ENCOUNTER 2018-12-11 15:15 | Emergency (ER) | payer BC, OTHER ==
[2018-12-11] MEDS ORDERED: ONDANSETRON HCL INJ/PF 4 MG/2 ML SDV IV ONE ×2 (16:55→21:03)
--- NOTE | 2018-12-11 17:03 | ER Document Report ---
ED Medical Screen (RME) - General Chief Complaint: Chest Pain Stated Complaint: SHORT OF BREATH,CHEST PAIN Time Seen by Provider: 12/11/18 16:51 Primary Care Provider: [facility] [Primary Care Provider] - Follow up as needed TRAVEL OUTSIDE OF THE [place] IN LAST 30 DAYS: No - HPI Notes: 12/11/18 16:57 Patient is a 53-year-old female with a history of diabetes, hypertension, hypothyroidism, parathyroidectomy who presents to the emergency department complaining of sharp substernal chest pain that began over the last couple days with increased pain and deep breathing. Patient states that she did have an upper respiratory infection a few weeks ago. She has been having associated nausea and "greasy stool." No history of UT, CHF, or CAD. Denies ESTRADA, fever, neck pain, URI, or rash. I have treated and performed a rapid initial assessment of this patient. A comprehensive ED assessment and evaluation of the patient, analysis of test results and completion of medical decision making process will be conducted by additional ED providers. PHYSICAL EXAMINATION: GENERAL: Well-appearing, well-nourished and in no acute distress. A&Ox4. Answers questions appropriately. Chest: + tenderness rt sternal border. LUNGS: Breath sounds clear to auscultation bilaterally and equal. No wheezes rales or rhonchi. HEART: Regular rate and rhythm without murmurs, rubs, gallops. Extremities: No cyanosis, clubbing, or edema b/l. No LE asymmetry. Shannon neg b/l. NEUROLOGICAL: Normal speech, normal gait. PSYCH: Normal mood, normal affect. - Related Data Allergies/Adverse Reactions: Sulfa (Sulfonamide Antibiotics) Allergy (Severe, Verified 12/11/18 15:20) THROAT SWELLING erythromycin base [Erythromycin Base] Allergy (Intermediate, Verified 12/11/18 15:20) RASH, VOMITING metoclopramide [From Reglan] Allergy (Verified 12/11/18 15:20) Past Medical History - Social History Frequency of alcohol use: None Drug Abuse: None - Past Medical History Cardiac Medical History: Reports: Hx Coronary Artery Disease - HIGH CHOLESTEROL, Hx Hypercholesterolemia, Hx Hypertension Denies: Hx Heart Attack Pulmonary Medical History: Reports: Hx Asthma, Hx Sleep Apnea Denies: Hx Bronchitis, Hx COPD, Hx Pneumonia Neurological Medical History: Denies: Hx Cerebrovascular Accident, Hx Seizures Endocrine Medical History: Reports: Hx Hypothyroidism Renal/ Medical History: Reports: Hx Ectopic , Hx Ovarian Cysts. Denies: Hx Kidney Stones, Hx Peritoneal Dialysis GI Medical History: Reports: Hx Gastroesophageal Reflux Disease - Severe, Hx Hiatal Hernia - Sliding Musculoskeltal Medical History: Reports Hx Arthritis, Reports Hx Musculoskeletal Deformity, Reports Hx Musculoskeletal Trauma Traumatic Medical History: Reports: Hx Fractures - Right shoulder Past Surgical History: Reports: Hx Abdominal Surgery - hernia repairs x3, Ailyn fundoplication, Hx Adenoidectomy, Hx Appendectomy - 2016, Hx Cholecystectomy, Hx Gynecologic Surgery - ectopic, Hx Orthopedic Surgery - Kneecap reconstruction, Hx Thyroid Surgery - thyroidectomy, parathyroidectmy with a parathyroid replaced. Denies: Hx Hysterectomy - Immunizations Hx Diphtheria, Pertussis, Tetanus Vaccination: Yes - SEP 2012 History of Influenza Vaccine for 05/2017 - 10/2017 Season: No Physical Exam - Vital signs Vitals: Temp Pulse Resp BP Pulse Ox 97.9 F 99 20 166/113 H 93 12/11/18 15:28 12/11/18 15:28 12/11/18 15:28 12/11/18 15:28 12/11/18 15:28 Course - Vital Signs Vital signs: Temp Pulse Resp BP Pulse Ox 97.9 F 99 20 166/113 H 93 12/11/18 15:28 12/11/18 15:28 12/11/18 15:28 12/11/18 15:28 12/11/18 15:28 Doctor's Discharge - Discharge Referrals: [facility] [Primary Care Provider] - Follow up as needed
--- NOTE | 2018-12-11 17:28 | RADIOLOGY REPORT (SQ) ---
EXAM DESCRIPTION: CHEST SINGLE VIEW COMPLETED DATE/TIME: 12/11/2018 5:20 pm REASON FOR STUDY: CP COMPARISON: 09/27/2018 EXAM PARAMETERS: NUMBER OF VIEWS: One view. TECHNIQUE: Single frontal radiographic view of the chest acquired. RADIATION DOSE: NA LIMITATIONS: None. FINDINGS: LUNGS AND PLEURA: No opacities, masses or pneumothorax. No pleural effusion. MEDIASTINUM AND HILAR STRUCTURES: No masses. Contour normal. HEART AND VASCULAR STRUCTURES: Heart normal in size. Normal vasculature. BONES: No acute findings. HARDWARE: None in the chest. OTHER: No other significant finding. IMPRESSION: NO ACUTE RADIOGRAPHIC FINDING IN THE CHEST. TECHNICAL DOCUMENTATION: JOB ID: [id number] [employer] All Rights Reserved Reading location - IP/workstation name: [email or web address]
[2018-12-11 18:02] LABS: ABSOLUTE EOSINOPHILS # (AUTO) 0.1 10^3/uL (0.0-0.6); ABSOLUTE LYMPHOCYTES (AUTO) 1.2 10^3/uL (0.5-4.7); ABSOLUTE MONOCYTES (AUTO) 0.4 10^3/uL (0.1-1.4); ABSOLUTE NEUT (AUTO) 5.5 10^3/uL (1.7-8.2); BASOPHILS % (AUTO) 0.4 % (0-2); EOSINOPHILS % (AUTO) 1.9 % (0-6); HEMATOCRIT 44.3 % (36.0-47.0); HEMOGLOBIN 15.4 g/dL (12.0-15.5); LYMPHOCYTES % (AUTO) 16.4 % (13-45); MEAN CORPUSCULAR HEMOGLOBIN 32.2 pg (27.0-33.4); MEAN CORPUSCULAR HGB CONC 34.9 g/dL (32.0-36.0); MEAN CORPUSCULAR VOLUME 92 fl (80-97); PLATELET COUNT 218 10^3/uL (150-450); RED CELL DISTRIBUTION WIDTH 13.6 % (11.5-14.0); SEGMENTED NEUTROPHILS % (AUTO) 75.3 % (42-78); TOTAL CELLS COUNTED % (AUTO) 100 %; WHITE BLOOD COUNT 7.4 10^3/uL (4.0-10.5)
[2018-12-11 18:36] LABS: ALANINE AMINOTRANSFERASE 171 U/L (9-52); ALBUMIN 4.8 g/dL (3.5-5.0); ALKALINE PHOSPHATASE 106 U/L (38-126); ANION GAP 10 (5-19); ASPARTATE AMINO TRANSFERASE 189 U/L (14-36); BILIRUBIN,DIRECT 0.4 mg/dL (0.0-0.4); BLOOD UREA NITROGEN 16 mg/dL (7-20); CALCIUM 10.4 mg/dL (8.4-10.2); CARBON DIOXIDE 28 mmol/L (22-30); CHLORIDE 99 mmol/L (98-107); GLUCOSE 119 mg/dL (75-110); POTASSIUM 4.6 mmol/L (3.6-5.0); SODIUM 136.6 mmol/L (137-145); TOTAL PROTEIN 8.6 g/dL (6.3-8.2)
--- NOTE | 2018-12-11 20:04 | EKG REPORT ---
SEVERITY:- NORMAL ECG - SINUS RHYTHM : Confirmed by: Oriana Roca MD 11-Dec-2018 20:02:53
[2018-12-11] MEDS ORDERED: MORPHINE SULFATE 10 MG/ML INJ IV PRN (21:02)
--- NOTE | 2018-12-11 21:12 | ER Document Report ---
ED General - General Chief Complaint: Chest Pain Stated Complaint: SHORT OF BREATH,CHEST PAIN Time Seen by Provider: 12/11/18 16:51 Primary Care Provider: [facility] [NO LOCAL MD] - Follow up tomorrow Cannot obtain history due to: Other - Poor historian Notes: Patient is a 53-year-old female with a history of diabetes, hypertension, hypothyroidism, parathyroidectomy who presents to the emergency department complaining of sharp substernal chest pain that started earlier today. In triage she states that have been present for several days but to me states it has only been for several hours. She states that there is some association of shortness of breath and that her pain is worse with breathing. Pain is described as a moderate to severe pain, constant since onset. Nothing improves the pain. No history of similar symptoms in the past by her report. Denies any known cardiac history. Patient also complains of a headache. She also complains of 1-2 months of abdominal pain with frequent loose, greasy stools. She has not seen her primary care physician regarding the above concerns. No fever or constitutional symptoms. TRAVEL OUTSIDE OF THE [place] IN LAST 30 DAYS: No - Related Data Allergies/Adverse Reactions: Sulfa (Sulfonamide Antibiotics) Allergy (Severe, Verified 12/11/18 15:20) THROAT SWELLING erythromycin base [Erythromycin Base] Allergy (Intermediate, Verified 12/11/18 15:20) RASH, VOMITING metoclopramide [From Reglan] Allergy (Verified 12/11/18 15:20) Past Medical History - General Information source: Patient - Social History Smoking Status: Never Smoker Frequency of alcohol use: None Drug Abuse: None Family History: Hypertension Patient has suicidal ideation: No Patient has homicidal ideation: No - Past Medical History Cardiac Medical History: Reports: Hx Coronary Artery Disease - HIGH CHOLESTEROL, Hx Hypercholesterolemia, Hx Hypertension Denies: Hx Heart Attack Pulmonary Medical History: Reports: Hx Asthma, Hx Sleep Apnea Denies: Hx Bronchitis, Hx COPD, Hx Pneumonia Neurological Medical History: Denies: Hx Cerebrovascular Accident, Hx Seizures Endocrine Medical History: Reports: Hx Hypothyroidism Renal/ Medical History: Reports: Hx Ectopic , Hx Ovarian Cysts. Denies: Hx Kidney Stones, Hx Peritoneal Dialysis GI Medical History: Reports: Hx Gastroesophageal Reflux Disease - Severe, Hx Hiatal Hernia - Sliding Musculoskeletal Medical History: Reports Hx Arthritis, Reports Hx Musculoskeletal Deformity, Reports Hx Musculoskeletal Trauma Traumatic Medical History: Reports: Hx Fractures - Right shoulder Past Surgical History: Reports: Hx Abdominal Surgery - hernia repairs x3, Ailyn fundoplication, Hx Adenoidectomy, Hx Appendectomy - 2016, Hx Cholecystectomy, Hx Gynecologic Surgery - ectopic, Hx Orthopedic Surgery - Kneecap reconstruction, Hx Thyroid Surgery - thyroidectomy, parathyroidectmy with a parathyroid replaced. Denies: Hx Hysterectomy - Immunizations Hx Diphtheria, Pertussis, Tetanus Vaccination: Yes - SEP 2012 Review of Systems - Review of Systems Notes: Constitutional: Negative for fever. HENT: Negative for sore throat. Eyes: Negative for visual changes. Cardiovascular: Positive for chest pain. Respiratory: Positive for shortness of breath Gastrointestinal: Positive for abdominal pain, positive for diarrhea Genitourinary: Negative for dysuria. Musculoskeletal: Negative for back pain. Skin: Negative for rash. Neurological: Positive for headache 10 point ROS negative except as marked above and in HPI. Physical Exam - Vital signs Vitals: Temp Pulse Resp BP Pulse Ox 97.9 F 99 20 166/113 H 93 12/11/18 15:28 12/11/18 15:28 12/11/18 15:28 12/11/18 15:28 12/11/18 15:28 Interpretation: Hypertensive Notes: PHYSICAL EXAMINATION: GENERAL: Well-appearing, well-nourished and in no acute distress. HEAD: Atraumatic, normocephalic. EYES: Pupils equal round and reactive to light, extraocular movements intact, sclera anicteric, conjunctiva are normal. ENT: nares patent, oropharynx clear without exudates. Moist mucous membranes. NECK: Normal range of motion, supple without lymphadenopathy LUNGS: Breath sounds clear to auscultation bilaterally and equal. No wheezes rales or rhonchi. HEART: Regular tachycardia without murmurs ABDOMEN: Soft, morbidly obese abdomen, nontender, normoactive bowel sounds. No guarding, no rebound. No masses appreciated. EXTREMITIES: Normal range of motion, no pitting or edema. No cyanosis. NEUROLOGICAL: No focal neurological deficits. Moves all extremities spontaneously and on command. PSYCH: Normal mood, normal affect. SKIN: Warm, Dry, normal turgor, no rashes or lesions noted. Course - Re-evaluation Re-evalutation: 12/11/18 21:09 Patient presents with a multitude of complaints including headache, chest pain, abdominal pain. She states that she has severe stabbing chest pain in the middle of her chest with worsening of breathing and associated shortness of breath. She states symptoms started earlier this morning. On exam the patient is noted to be tachycardic to a heart rate of 113. Moderately hypoxic sat 92. Patient is also complaining of abdominal pain that has been ongoing for 1 month with associated stearrhea. She also complains of the pain is rating directly to her back. The patient is an extremely poor historian making it very difficult to ascertain what her chief complaint is or exactly what is bring her to the hospital today versus any other day but it seems that her main complaint is chest pain and shortness of breath. Patient states delivery I feel like I cannot breathe. The patient is obese, over the age of 50, has a previous history of cancer placing her at high risk for pulmonary embolus. She is also hypertensive and her chest pain radiating directly into her back is also somewhat characteristic of a possible dissection. I will therefore run a CTA of her chest to evaluate both for PE and dissection protocol. Her initial labs show LFT elevations similar to previous elevations that she has had in the past over the last 3 years. Will reassess after completion of CT imaging. 12/11/18 22:50 CT of the chest abdomen and pelvis completely unremarkable for any acute pathology. Repeat troponin is negative. Very low, suspicion for ACS given characterization of her discomfort absence of any pain at this time, 2 negative troponins, reassuring EKG. Patient denies any symptoms at the time of my reassessment. States she feels well and would like to go home.. patient clinically states that she feels much better. Vitals within normal limits without any tachycardia or hypoxemia. At this time will discharge with return precautions and follow-up recommendations. Verbal discharge instructions given a the bedside and opportunity for questions given. Medication warnings reviewed. Patient is in agreement with this plan and has verbalized understanding of return precautions and the need for primary care follow-up in the next 24-72 hours. - Vital Signs Vital signs: Temp Pulse Resp BP Pulse Ox 97.9 F 99 19 166/83 H 92 12/11/18 15:28 12/11/18 15:28 12/12/18 00:40 12/12/18 00:00 12/12/18 00:40 - Laboratory Result Diagrams: 12/11/18 17:37 04/15/19 17:37 Laboratory results interpreted by me: 12/11/18 17:37 Sodium 136.6 L Glucose 119 H Calcium 10.4 H AST 189 H ALT 171 H Total Protein 8.6 H - Diagnostic Test Radiology reviewed: Reports reviewed - EKG Interpretation by Me Additional EKG results interpreted by me: 12/11/18 22:52 Normal sinus rhythm, rate 91. No ST elevations or depressions. QTC is 391. Discharge - Discharge Clinical Impression: Multiple complaints Chest pain Qualifiers: Chest pain type: unspecified Qualified Code(s): R07.9 - Chest pain, unspecified Abdominal pain Qualifiers: Abdominal location: generalized Qualified Code(s): R10.84 - Generalized abdominal pain Condition: Good Disposition: HOME, SELF-CARE Additional Instructions: Your CAT scan of your chest abdomen and pelvis as well as all of your blood work is normal today. You were seen today for chest pain. The exact cause of your pain is unclear. However, based on your cardiac enzyme testing, chest x-ray, and EKG it does not appear that it is from an immediately life-threatening cause at this time. Although your testing here is normal is critical that you follow-up with your primary care physician for continued evaluation of this chest pain and possible stress testing. I recommended you see your physician within the next 24-48 hours to be evaluated for consideration of a stress test. Please return to emergency department immediately if you have worsening of your chest pain, shortness of breath, vomiting, become unable to exert yourself due to pain or difficulty breathing, you pass out, or have any pain that radiates into your arms, jaw, or back. Please also return if you have any additional symptoms that are concerning to you. Referrals: [facility] [NO LOCAL MD] - Follow up tomorrow
--- NOTE | 2018-12-11 21:35 | RADIOLOGY REPORT (SQ) ---
CT angiogram of the abdomen and pelvis before and after intravenous contrast with three-dimensional reconstructions HISTORY: Chest pain, abdominal pain, shortness of breath. This exam was performed according to our departmental dose-optimization program which includes automated exposure control, adjustment of the mA and/or kVp according to patient size and/or use of iterative reconstruction technique where applicable. FINDINGS: Abdominal aorta is within normal limits with no evidence for dissection or aneurysm. The major abdominal aortic vessels are normal in appearance with no significant stenosis or liver evidence for occlusion. Single renal arteries bilaterally. Common iliac and external iliac arteries are patent. Internal iliac arteries are mildly diseased. Liver demonstrates diffuse fatty infiltration. Spleen is not enlarged. The pancreas, adrenal glands and kidneys are within normal limits. Status post cholecystectomy. No significant biliary dilatation. No dilated loops of bowel to suggest obstruction. Mild amount of stool in the colon. Mild descending and sigmoid colonic diverticulosis. Bladder is unremarkable. Gynecologic organs are unremarkable. IMPRESSION: No evidence for abdominal aortic dissection or aneurysm. No acute abdominal or pelvic pathology.
--- NOTE | 2018-12-11 22:23 | RADIOLOGY REPORT (SQ) ---
EXAM DESCRIPTION: CT CHEST ANGIOGRAPHY WITHOUT THEN WITH IV CONTRAST, three-dimensional reconstructions COMPLETED DATE/TME: 12/11/2018 20:48 CLINICAL HISTORY: 53 years, Female, Chest pain, radiating to back, shortness of breath This exam was performed according to our departmental dose-optimization program which includes automated exposure control, adjustment of the mA and/or kVp according to patient size and/or use of iterative reconstruction technique where applicable. FINDINGS: Pulmonary arteries are well opacified with no significant filling defects in the pulmonary arterial tree to suggest acute pulmonary embolism. Aorta is within normal limits with no aneurysm or dissection. No significant mediastinal, hilar or axillary lymphadenopathy. No pleural or pericardial effusions . Evaluation of the lung parenchyma demonstrates trachea and major airways to be patent. No suspicious lung nodules or masses. No consolidations to suggest pneumonia. Mild left basilar atelectatic changes. IMPRESSION: No acute pulmonary embolism. No evidence for acute aortic dissection. No acute chest pathology.
[2018-12-12 00:41] VITALS: BP 166/83
== END 2018-12-12 01:08 | disposition home or self-care (01) ==
LOC: ER 15:15
DX: R07.9 Chest pain, unspecified (principal); R10.84 Generalized abdominal pain; R06.02 Shortness of breath; R51 Headache; R10.9 Unspecified abdominal pain; R19.7 Diarrhea, unspecified; Z98.890 Other specified postprocedural states; E11.9 Type 2 diabetes mellitus without complications; I10 Essential (primary) hypertension; I25.10 Atherosclerotic heart disease of native coronary artery without angina pectoris
CPT/HCPCS: 93005; 96376; 99284; 96374; 96375; 86900; 86901; 36415; 86850; 85025; 80053; 84484; 71045; 71275; 74174; 93010; J2270; J2405

== ENCOUNTER → 2019-04-23 | Outpatient (CLI) | payer OTHER ==
[2019-04-23 10:46] LABS: ABSOLUTE EOSINOPHILS # (AUTO) 0.2 10^3/uL (0.0-0.6); ABSOLUTE LYMPHOCYTES (AUTO) 0.8 10^3/uL (0.5-4.7); ABSOLUTE MONOCYTES (AUTO) 0.2 10^3/uL (0.1-1.4); ABSOLUTE NEUT (AUTO) 2.9 10^3/uL (1.7-8.2); BASOPHILS % (AUTO) 0.8 % (0-2); HEMOGLOBIN 14.2 g/dL (12.0-15.5); LYMPHOCYTES % (AUTO) 20.2 % (13-45); MEAN CORPUSCULAR HEMOGLOBIN 31.8 pg (27.0-33.4); MEAN CORPUSCULAR HGB CONC 33.7 g/dL (32.0-36.0); MEAN CORPUSCULAR VOLUME 94 fl (80-97); MONOCYTES % (AUTO) 5.7 % (3-13); PLATELET COUNT 188 10^3/uL (150-450); RED BLOOD COUNT 4.45 10^6/uL (3.72-5.28); SEGMENTED NEUTROPHILS % (AUTO) 69.3 % (42-78); TOTAL CELLS COUNTED % (AUTO) 100 %; WHITE BLOOD COUNT 4.2 10^3/uL (4.0-10.5)
[2019-04-23 11:17] LABS: ALBUMIN 4.1 g/dL (3.5-5.0); ALKALINE PHOSPHATASE 106 U/L (38-126); ANION GAP 12 (5-19); ASPARTATE AMINO TRANSFERASE 102 U/L (14-36); BILIRUBIN,DIRECT 0.4 mg/dL (0.0-0.4); BILIRUBIN,TOTAL 0.6 mg/dL (0.2-1.3); BLOOD UREA NITROGEN 6 mg/dL (7-20); CALCIUM 9.4 mg/dL (8.4-10.2); CARBON DIOXIDE 27 mmol/L (22-30); CHLORIDE 100 mmol/L (98-107); CHOLESTEROL 253.28 mg/dL (0-200); GLUCOSE 201 mg/dL (75-110); POTASSIUM 4.1 mmol/L (3.6-5.0); TOTAL PROTEIN 7.4 g/dL (6.3-8.2); TRIGLYCERIDES 247 mg/dL (<150)
[2019-04-23 11:24] LABS: ERYTHROCYTE SEDIMENTATION RATE 35 mm/hr (0-30)
[2019-04-23 11:27] LABS: DIRECT LDL 223 mg/dL (<100)
[2019-04-23 11:29] LABS: FREE T3 3.12 pg/mL (2.77-5.27); FREE T4 (FREE THYROXINE) 1.19 ng/dL (0.78-2.19)
[2019-04-23 11:30] LABS: VLDL CHOLESTEROL 49.4 mg/dL (10-31)
[2019-04-23 11:42] LABS: THYROID STIMULATING HORMONE 6.02 uIU/mL (0.47-4.68)
== END ==
LOC: CCC 10:18
DX: I10 Essential (primary) hypertension (principal)
CPT/HCPCS: 36415; 80053; 80061; 83036; 83735; 84439; 84443; 84481; 85025; 85652

== ENCOUNTER → 2019-09-18 | Outpatient (CLI) | payer OTHER ==
[2019-09-18 12:16] LABS: ABSOLUTE EOSINOPHILS # (AUTO) 0.1 10^3/uL (0.0-0.6); ABSOLUTE LYMPHOCYTES (AUTO) 1.1 10^3/uL (0.5-4.7); ABSOLUTE MONOCYTES (AUTO) 0.5 10^3/uL (0.1-1.4); ABSOLUTE NEUT (AUTO) 5.6 10^3/uL (1.7-8.2); BASOPHILS % (AUTO) 0.5 % (0-2); EOSINOPHILS % (AUTO) 1.8 % (0-6); HEMOGLOBIN 15.6 g/dL (12.0-15.5); LYMPHOCYTES % (AUTO) 14.9 % (13-45); MEAN CORPUSCULAR HEMOGLOBIN 32.4 pg (27.0-33.4); MEAN CORPUSCULAR HGB CONC 34.5 g/dL (32.0-36.0); MEAN CORPUSCULAR VOLUME 94 fl (80-97); MONOCYTES % (AUTO) 6.5 % (3-13); PLATELET COUNT 191 10^3/uL (150-450); RED CELL DISTRIBUTION WIDTH 13.6 % (11.5-14.0); SEGMENTED NEUTROPHILS % (AUTO) 76.3 % (42-78); TOTAL CELLS COUNTED % (AUTO) 100 %; WHITE BLOOD COUNT 7.4 10^3/uL (4.0-10.5)
[2019-09-18 12:42] LABS: ALBUMIN 4.6 g/dL (3.5-5.0); ALKALINE PHOSPHATASE 107 U/L (38-126); ASPARTATE AMINO TRANSFERASE 220 U/L (14-36); BILIRUBIN,DIRECT 0.2 mg/dL (0.0-0.4); TOTAL PROTEIN 8.1 g/dL (6.3-8.2); TRIGLYCERIDES 163 mg/dL (<150)
[2019-09-18 12:53] LABS: DIRECT LDL 219 mg/dL (<100)
[2019-09-18 12:57] LABS: VLDL CHOLESTEROL 32.6 mg/dL (10-31)
[2019-09-18 13:11] LABS: FREE T4 (FREE THYROXINE) 2.92 ng/dL (0.78-2.19)
[2019-09-18 13:31] LABS: THYROID STIMULATING HORMONE < 0.01 uIU/mL (0.47-4.68)
== END ==
LOC: CCC 11:31
DX: E78.5 Hyperlipidemia, unspecified (principal); E03.9 Hypothyroidism, unspecified; C73 Malignant neoplasm of thyroid gland; R31.9 Hematuria, unspecified
CPT/HCPCS: 36415; 80061; 80076; 84439; 84443; 85025; 87086